=== PATIENT | female | born 1945 | race Caucasian/White ===

== ENCOUNTER 2016-10-24 10:16 | Inpatient (IN) ==
[2016-10-24] MEDS ORDERED: Levofloxacin 750 MG/150 ML 750 MG/150 ML BAG IVPB ONE (10:46)
[2016-10-24] MEDS ORDERED: Ipratropium/Albuterol Neb 3 ML IH ONE (10:51)
[2016-10-24] MEDS ORDERED: Azithromycin 500 MG in D5% in Water 250 ML IVPB ONE (10:53)
[2016-10-24] MEDS ORDERED: 0.9 % Sodium Chloride 1,000 ML IVC ONE ×3 (10:56→14:23)
[2016-10-24 11:19] LABS: Hematocrit 33.6 % (35.3-44.9); Hemoglobin 11.1 g/dL (11.5-15.4); Mean Corpuscular Hemoglobin 31.2 pg (28.0-33.3); Mean Corpuscular Volume 94.4 fL (83.0-100.0); Mean Platelet Volume 9.9 fL (9.4-12.4); Platelet Count 226 K/mcL (140-400); Red Blood Count 3.56 M/mcL (3.82-4.97); Red Cell Distribution Width 13.8 % (11.5-14.5)
--- NOTE | 2016-10-24 11:23 | Emergency Department Note ---
START Narrative - START START: I personally interviewed and examined this patient and my medical decision- making was reviewed with the ED Resident Physicians, Drs. Arana/Bhupendra. I agree with the documented findings, disposition and treatment plan as described except to the extent set forth below. She is a pleasant 71-year-old white female brought in by her this morning for complaints generalized body aches fever chills cough that began last night. Patient arrives hypoxic and hypotensive with complaints of some lightheadedness with standing. Despite hypoxia patient is in no visible signs of respiratory distress on arrival, no tachypnea conversational dyspnea and no increased work of breathing. Patient denies any chest pain pressure or heaviness no abdominal pain, no flank pain. Patient's states that she has had endoscopic surgery for sinuses in the past by ENT due to chronic recurrent sinusitis, and since that time is seems very susceptible to upper respiratory infection and pneumonia. Patient had a bilateral pneumonia in the past due to pneumococcal pneumonia. Patient had no ill contacts at home. Patient on arrival has no signs of respiratory distress, lungs no audible wheezing on auscultation. Patient appears tired mildly pale in color but remainder of physical exam is unremarkable. Patient was placed on a monitor I large bore IV saline well was established IV fluids were initiated for the hypotension and placed on supplement oxygen. Patient had blood cultures obtained, and with clinical suspicion for possible sepsis due to hypotension patient had a fluid bolus ordered a septic protocol labs were ordered and patient was started on empiric antibiotics for possible pneumonia. Chest x-ray does show bilateral pneumonia. Reviewed results with patient and plan for admission pending remainder of labs. We will observe her blood pressure closely as well as her respiratory status and repeat lactate after fluid boluses. Critical care time was approximately 30 minutes separate from any billable procedures. Patient acquired critical care evaluation and assessment due to the respiratory as well as cardiovascular systems. The high probability of a clinically significant, sudden or life threatening deterioration of the [resp/CV] system(s) required my full and direct attention, intervention and personal management. The aggregate critical care time was [30] minutes. This time is in addition to time spent performing reported procedures but includes the following: [X] Data Review and interpretation [X] Patient assessment and monitoring of vital signs [X] Documentation [X] Medication orders and management
[2016-10-24 11:36] LABS: Albumin 3.1 g/dL (3.5-5.0); Albumin/Globulin Ratio 0.8 (1.1-2.2); Bilirubin,Direct 0.5 mg/dL (0.0-0.5); Bilirubin,Indirect 0.6 mg/dL (0.0-1.2); Bilirubin,Total 1.1 mg/dL (0.2-1.2); Globulin 3.7 g/dL (2.4-3.5); Magnesium 1.3 mg/dL (1.6-2.6); Phosphorous 2.6 mg/dL (2.3-4.7); Potassium 3.8 mEq/L (3.5-4.5); Total Protein 6.8 g/dL (6.0-8.3)
[2016-10-24 12:24] LABS: Lymphocytes # 0.5 K/mcL (0.6-4.6); Monocytes # 0.3 K/mcL (0.0-1.3); Platelet Estimate Normal (Normal)
--- NOTE | 2016-10-24 12:49 | Emergency Department Note ---
Disposition Clinical Impression: Community acquired pneumonia, SOB (shortness of breath), ROWAN (acute kidney injury), Lactic acid acidosis Bilateral pneumonia Qualifiers: Pneumonia type: due to unspecified organism Lung location: lower lobe of lung Qualified Code(s): J18.9 - Pneumonia, unspecified organism Sepsis Qualifiers: Sepsis type: sepsis due to unspecified organism Qualified Code(s): A41.9 - Sepsis, unspecified organism Disposition: Transfer Short-Term Hosp Condition: Serious Time of Disposition: 16:25 General Adult HPI - General Chief complaint: ED Shortness of Breath/Dyspnea Stated complaint: multiple complaints Time Seen by Provider: 10/24/16 10:25 Source: patient, family Limitations: no limitations Nursing Notes Reviewed: Yes Vital Signs Reviewed: Yes - History of Present Illness HPI Narrative: Patient is a 71-year-old female who presents to tachypneic, tachycardic, and hypotensive with past medical history for asthma and hyperlipidemia. Patient states that she has acute onset of fever of 101, congestion and cough times one day. Patient states she took Tylenol. Patient admits to shortness of breath and well. Patient states she has history of pneumonia in the past. The patient states that she has never been intubated. Patient reports feeling 2 days ago. Pain Scale: 0 - Related Data Home Medications Medication Instructions Recorded Confirmed Acetaminophen [Tylenol] 1,000 mg PO Q6HR PRN 10/24/16 10/24/16 Albuterol Sulfate [Albuterol 2 puff IH Q6HR PRN 10/24/16 10/24/16 Inhaler] Atorvastatin Calcium [Lipitor] 20 mg PO HS 10/24/16 10/24/16 Fluticasone/Salmeterol [Advair 1 puff IH BID 10/24/16 10/24/16 250-50 Diskus] Naproxen Sodium [Aleve] 220 mg PO Q12H PRN 10/24/16 10/24/16 Pantoprazole Sodium [Protonix] 40 mg PO HS 10/24/16 10/24/16 Paroxetine [Paxil] 30 mg PO DAILY 10/24/16 10/24/16 Trazodone HCl 150 mg PO HS 10/24/16 10/24/16 Allergies Allergy/AdvReac Type Severity Reaction Status Date / Time No Known Allergies Allergy Verified 05/01/15 19:31 All systems ED: reviewed and negative except as stated. Constitutional: Reports: fever, weakness. Denies: chills Eyes: Denies: vision change ENT ED: Reports: congestion Cardiovascular: Denies: chest pain, palpitations, syncope Respiratory: Reports: cough, dyspnea. Denies: wheezes, hemoptysis, sputum production Gastrointestinal: Denies: abdominal pain, nausea, vomiting, diarrhea, hematemesis, melena, hematochezia Genitourinary: Denies: urgency, dysuria, frequency Musculoskeletal: Reports: back pain. Denies: neck pain, myalgia Neurological: Reports: headache, weakness Psychiatric: Reports: anxiety Endocrine: Reports: fatigue Past Medical History - Past Medical History Attestation: Yes The following information was validated with the patient. Source: patient Medical history: Reports: arthritis, asthma, hyperlipidemia Psychiatric history: Reports: depression - Social History Smoking Status: Never smoker Smokeless Tobacco Status: No Alcohol use: Reports: none Drug use: Reports: none Physical Exam Vital Signs Temperature 97.8 F 10/24/16 10:19 Pulse Rate 95 10/24/16 10:19 Respiratory Rate 16 10/24/16 10:19 Blood Pressure 81/56 10/24/16 10:19 O2 Sat by Pulse Oximetry 88 10/24/16 10:19 Temperature 97.8 F 10/24/16 10:19 Pulse Rate 115 10/24/16 15:45 Respiratory Rate 18 10/24/16 15:45 Blood Pressure 102/67 10/24/16 15:45 O2 Sat by Pulse Oximetry 94 10/24/16 15:45 Oxygen Delivery Oxygen Delivery Nasal Cannula -General Appearance: Patient is a 71-year-old female who is alert and oriented 3 but is tachypneic, and appears fatigued. Patient has a GCS of 15. Patient was placed on O2 reason is nasal cannula. O2 sat initially was 88%. After placement on O2 via is a nasal cannula O2 sat came up to 92%. Patient is bruising easier but still tachypneic -Neurological exam: Cranial nerves II-12 intact, no focal deficits observed, strength equal 5/5 bilaterally in upper and lower extremities - Head Head exam: atraumatic, normocephalic, normal inspection - Eye Eye exam: Present: normal appearance, PERRL, EOMI, negative for scleral icterus negative for conjunctival pallor - ENT ENT exam: normal exam, normal oropharynx, mucous membranes dry - Neck Neck exam: Present: normal inspection, full ROM, trachea midline, negative JVD - Chest Chest inspection: Present: Patient has bilateral equal rise and fall of chest wall. Non-tender to palpation. - Respiratory Respiratory exam: Rales in lung bases bilaterally heard on auscultation. Patient has a wet sounding nonproductive cough Cardiovascular Cardiovascular exam: Present: Irregular rate and regular rhythm with no murmurs rubs or gallops. 9 his tach on EKG - Abdominal Exam Abdominal exam: Present: soft, nondistended, Non-Tender light and deep palpation in all quadrants. Bowel sounds normoactive throughout all 4 quadrants. Negative for hyper or hyperresonance. - Extremities Exam Extremities exam: Present: normal inspection, full ROM - Back Exam Back exam: Present: normal inspection, full ROM. Patient has left-sided CVA tenderness. - Psychiatric Psychiatric exam: Present: normal affect, normal mood - Skin Skin exam: Present: warm, dry, intact, normal color - General Limitations: no limitations General appearance: alert, in no apparent distress Course - Reevaluation(s) Reevaluation #1: Patient presents with tachypnea, tachycardia, shortness of breath, Rales bilateral lung knowles and fever over 101 at home. Patient's concerning for sepsis secondary to possible pneumonia. Also consider PE, ACS/TX, heart failure , but given patient's history of fever will consider infectious condition first. Full sepsis workup ordered. CBC, BMP, lactate, cultures, LFTs, lipase ordered. Chest x-ray ordered. EKG and troponins ordered. Time: 10:46 Reevaluation #2: Pt continues to feel short of breath. Still hypotensive at 80/55. Patient fdc through first liter bolus. Starting another line. Labs show an elevation of lactate of 4.0., IV antibiotics, IV normal saline already initiated. Cultures were drawn first. Secondary Lactaid already ordered. DuoNeb was ordered. Chest x-ray shows bilateral lower lobe pneumonias. Patient started on Levaquin for community acquired pneumonia Time: 11:20 Reevaluation #3: Blood pressure 133/85 after 1.5 L fluid bolus. Patient currently doing well but complains of still feeling short of breath. Patient is tachypneic but not the point requiring BiPAP. Patient appears more anxious than anything else. Patient was accepted for admission by Dr. Pena the hospitalist Time: 12:47 Additional Reevaluation(s): 1425hrs: Patient was admitted to the hospital. I had requested the patient go to 2N given herself current condition. Patient was instead sent to 2A, then sent back to the ED because she is not appropriate for that floor. Concurrently had just placed a call to Dr. Pena about the patient's rising lactic acid. 4 which, he recommends admission to the ICU. Unfortunately there are currently no beds in the ICU. Patient has been placed on an ED hold. Patient has been started on another liter of normal saline to make 3 L thus far. We will continue to monitor patient's lactic acid, lung status concerning continuing IV hydration, and continue to investigate patient's shortness of breath, tachypnea, and rising lactic acid even though patient is being aggressively hydrated. Patient has been started on vancomycin in addition to her Levaquin which she started earlier. CT chest ordered to rule out any other underlying causes for patient's symptoms. Chest CT 10/24/16 14:34 IMPRESSION: 1. Findings consistent with bilateral basilar predominant multifocal pneumonia. No effusion. 2. Subcarinal lymphadenopathy which may be reactive in nature. Patient continues to revert back into hypotension after fluid challenge after fluid challenge. Patient's blood pressure will go up and then go back down. Patient has accepted the decision for central line placement of the right IJ to prepare for possible vasopressor treatment if necessary to maintain the patient' s blood pressure. See procedure note. Patient received a total of 4 L of IV normal saline. The decision to withhold BiPAP was made after patient received 0.5 mg of Ativan which allowed her to calm down. Patient's breathing rate slowed down and patient was able to breathe easier. BiPAP was kept at bedside in case patient required it. Patient's and patient requests patient be transferred to [facility]. We will facilitate patient's request secondary to us not having unavailable ICU bed. It is unknown at this time and how long it would take first to open up an ICU bed and given patient's current status she appears to be more sick than the requirements of our emergency department can provide at this time. 1625 hrs.: Transfer has been initiated patient is in route to [facility]. - Consultations Consultation #1: Dr. Townsend ED physician at [facility] has accepted patient for transfer. Time: 15:50 Vital Signs Temperature 97.8 F 10/24/16 10:19 Pulse Rate 95 10/24/16 10:19 Respiratory Rate 16 10/24/16 10:19 Blood Pressure 81/56 10/24/16 10:19 O2 Sat by Pulse Oximetry 88 10/24/16 10:19 Temperature 97.8 F 10/24/16 10:19 Pulse Rate 113 10/24/16 16:00 Respiratory Rate 16 10/24/16 16:25 Blood Pressure 136/68 10/24/16 16:25 O2 Sat by Pulse Oximetry 94 10/24/16 16:00 Oxygen Delivery Oxygen Delivery Nasal Cannula Procedures - Central Line Placement Right IJ Central Line Inserted*: Yes Central Line Catheter Replacement*: Yes Central Line Insertion: emergent Consent Obtained: verbal consent, written consent Procedural Pause: verify patient name and date of , timeout performed per policy, chuck and assess the site, assemble equipment and verify supplies, perform hand hygiene Patient Placed on Monitor/Pulse Ox: Yes During the Procedure: clinician is wearing sterile gloves, cap, mask,& gown during insertion, sterile field and sterile technique are maintained, patient's face is covered with drape or mask and wearing a cap, everyone in room is wearing a mask Central Line Prep: Chlorhexidine scrub Prep the Procedure Site: apply chloraprep to the skin using a back and forth scrubbing motion, apply chloraprep for 30 seconds (upper body), 1-2 min ( femoral sites), allow prep to dry, drape the patient with a full body drape Local Anesthetic: lidocaine 1% Amount of anesthesia used (mL): 3 Ultrasound Used for Placement: Yes Central Line Lumen Inserted: triple Post Procedure: sutured in place, good blood return, all ports aspirated, flushed, capped, sterile dressing applied, guide wire removed and visualized, dressing is dated Post Procedure X-Ray: tip of catheter in good position Patient Tolerated Procedure: well, no complications Name of Clinician Inserting Central Line: Dr. Arana Clinician Assisting/Completing Checklist: Dr. Whitehead Date: 10/24/16 Time: 15:45 Medical Decision Making - Lab Data Lab results reviewed: Yes I reviewed the patient's lab results. Lab results narrative: Short CBC 10/24/16 Range/Units 11:05 WBC 7.8 (4.3-11.1) K/mcL Hgb 11.1 L (11.5-15.4) g/dL Hct 33.6 L (35.3-44.9) % Plt Count 226 (140-400) K/mcL Neutrophils # 7.0 (1.6-8.9) K/mcL BMP 10/24/16 10/24/16 Range/Units 15:50 11:05 Sodium 136 138 (136-145) mEq/L Potassium 3.6 3.8 (3.5-4.5) mEq/L Chloride 112 H 106 (98-109) mEq/L Carbon Dioxide 14 L 19 (19-29) mEq/L BUN 21 H 23 H (7-20) mg/dL Creatinine 0.98 1.47 H (0.57-1.11) mg/dL Glucose 174 H 133 H (70-99) mg/dL Calcium 7.1 L D 9.0 (8.6-10.8) mg/dL Cardiac Enzymes 10/24/16 Range/Units 11:05 Troponin I 0.00 (0-0.03) ng/mL Liver Function 10/24/16 Range/Units 11:05 Total Bilirubin 1.1 (0.2-1.2) mg/dL Direct Bilirubin 0.5 (0.0-0.5) mg/dL AST 16 (5-34) Units/L ALT 15 (0-55) Units/L Alkaline Phosphatase 61 (38-126) Units/L Albumin 3.1 L (3.5-5.0) g/dL Result diagrams: 10/24/16 11:05 10/24/16 15:50 Lab Results 10/24/16 10/24/16 10/24/16 Range/Units 11:05 11:05 11:05 WBC 7.8 (4.3-11.1) K/mcL RBC 3.56 L (3.82-4.97) M/mcL Hgb 11.1 L (11.5-15.4) g/dL Hct 33.6 L (35.3-44.9) % MCV 94.4 (83.0-100.0) fL MCH 31.2 (28.0-33.3) pg MCHC 33.0 (31.6-35.5) g/dL RDW 13.8 (11.5-14.5) % Plt Count 226 (140-400) K/mcL MPV 9.9 (9.4-12.4) fL Seg Neutrophils % 46.0 % Band Neutrophils % 44.0 H (0-4) % Lymphocytes % 6.0 % Monocytes % 4.0 % Neutrophils # 7.0 (1.6-8.9) K/mcL Lymphocytes # 0.5 L (0.6-4.6) K/mcL Monocytes # 0.3 (0.0-1.3) K/mcL Platelet Estimate Normal (Normal) Sodium 138 (136-145) mEq/L Potassium 3.8 (3.5-4.5) mEq/L Chloride 106 (98-109) mEq/L Carbon Dioxide 19 (19-29) mEq/L BUN 23 H (7-20) mg/dL Creatinine 1.47 H (0.57-1.11) mg/dL Est GFR ( Amer) 42 L (> 60) Est GFR (Non-Af Amer) 35 L (> 60) BUN/Creatinine Ratio 16 (6-26) Glucose 133 H (70-99) mg/dL Calculated Osmolality 292 (280-300) Lactic Acid (0.5-2.2) mmol/L Calcium 9.0 (8.6-10.8) mg/dL Phosphorus 2.6 (2.3-4.7) mg/dL Magnesium 1.3 L (1.6-2.6) mg/dL Total Bilirubin 1.1 (0.2-1.2) mg/dL Direct Bilirubin 0.5 (0.0-0.5) mg/dL Indirect Bilirubin 0.6 (0.0-1.2) mg/dL AST 16 (5-34) Units/L ALT 15 (0-55) Units/L Alkaline Phosphatase 61 (38-126) Units/L Troponin I (0-0.03) ng/mL B-Natriuretic Peptide 288 H (0-100) pg/mL Serum Total Protein 6.8 (6.0-8.3) g/dL Albumin 3.1 L (3.5-5.0) g/dL Globulin 3.7 H (2.4-3.5) g/dL Albumin/Globulin Ratio 0.8 L (1.1-2.2) Lipase 23 (8-78) Units/L 10/24/16 10/24/16 Range/Units 11:05 11:08 WBC (4.3-11.1) K/mcL RBC (3.82-4.97) M/mcL Hgb (11.5-15.4) g/dL Hct (35.3-44.9) % MCV (83.0-100.0) fL MCH (28.0-33.3) pg MCHC (31.6-35.5) g/dL RDW (11.5-14.5) % Plt Count (140-400) K/mcL MPV (9.4-12.4) fL Seg Neutrophils % % Band Neutrophils % (0-4) % Lymphocytes % % Monocytes % % Neutrophils # (1.6-8.9) K/mcL Lymphocytes # (0.6-4.6) K/mcL Monocytes # (0.0-1.3) K/mcL Platelet Estimate (Normal) Sodium (136-145) mEq/L Potassium (3.5-4.5) mEq/L Chloride (98-109) mEq/L Carbon Dioxide (19-29) mEq/L BUN (7-20) mg/dL Creatinine (0.57-1.11) mg/dL Est GFR ( Amer) (> 60) Est GFR (Non-Af Amer) (> 60) BUN/Creatinine Ratio (6-26) Glucose (70-99) mg/dL Calculated Osmolality (280-300) Lactic Acid 4.0 H* (0.5-2.2) mmol/L Calcium (8.6-10.8) mg/dL Phosphorus (2.3-4.7) mg/dL Magnesium (1.6-2.6) mg/dL Total Bilirubin (0.2-1.2) mg/dL Direct Bilirubin (0.0-0.5) mg/dL Indirect Bilirubin (0.0-1.2) mg/dL AST (5-34) Units/L ALT (0-55) Units/L Alkaline Phosphatase (38-126) Units/L Troponin I 0.00 (0-0.03) ng/mL B-Natriuretic Peptide (0-100) pg/mL Serum Total Protein (6.0-8.3) g/dL Albumin (3.5-5.0) g/dL Globulin (2.4-3.5) g/dL Albumin/Globulin Ratio (1.1-2.2) Lipase (8-78) Units/L - Radiology Data Radiology results reviewed: Yes I reviewed the patient's radiology results. Chest CT 10/24/16 14:34 IMPRESSION: 1. Findings consistent with bilateral basilar predominant multifocal pneumonia. No effusion. 2. Subcarinal lymphadenopathy which may be reactive in nature. D/ / 10/24/2016 15:17:31 Gerald Gorman MD / artur Interpreting Provider: Gerald Gorman MD Chest X-Ray 10/24/16 15:35 IMPRESSION: 1. New right IJ central venous catheter positioned in the SVC. No pneumothorax 2. Stable multifocal bilateral airspace opacities may indicate a multilobar pneumonia. D/ /24/2016 15:51:59 Adam Post MD / Alba Flanagan Interpreting Provider: Adam Post MD - EKG Data EKG #1 EKG attestation: Yes I reviewed and interpreted this EKG. EKG results narrative: EKG taken 10/24/2016 at 1027 hrs. shows a sinus rhythm with no acute ST elevations in any leads or ST depressions. No QRS widening or QT prolongation. Previous EKG taken 11/04/2013 shows sinus tachycardia at a rate of 110 bpm with no signs of ischemia
--- NOTE | 2016-10-24 13:27 | Internal Med History&Physical ---
Date of Encounter: 10/24/16 Time of Encounter: 13:00 Assessment and Plan (1) Severe sepsis due to Streptococcus pneumoniae with acute organ dysfunction Current visit: Yes Status: Suspected Patient presenting with severe sepsis due to pneumonia which is community- acquired, possibly due to strep pneumonia. Will admit inpatient. IV antibiotics. IV fluids. Follow blood and sputum cultures. High risk for complications. (2) Community acquired pneumonia Current visit: Yes Status: Acute Bilateral comminuted, pneumonia most likely due to strep pneumonia. IV antibiotics. O2 supplementation. Follow blood and sputum cultures. Monitor vital signs closely. We will also get viral respiratory infection panel. (3) ROWAN (acute kidney injury) Current visit: Yes Status: Acute Due to severe sepsis. We will hydrate intravenously. Follow renal function closely. Internal Medicine - H&P: HPI Chief complaint: Fever, feeling sick Admitted From: Emergency Dept Plans for Post Hospital Care: Home History of present illness: Ms. Melchor is a 71 year old female patient with a history of ulcerative colitis status post colectomy and ileostomy presented to the ER with complaints of sudden onset fever, chills and generalized weakness with dizziness as especially on standing up that began last night. She had been feeling fine prior to that. She was also having some shortness of breath and wheezing. She had some cough without any sputum production. No chest pain. No recent hospitalizations. No nausea or vomiting. No diarrhea. No dysuria. Past Med Surg Social Fam HX - Past Medical History Attestation: Yes The following information was validated with the patient. Source: patient Medical history: arthritis, asthma, hyperlipidemia, other (Ulcerative colitis) Psychiatric history: depression - Past Surgical History Surgical History: other (Colectomy and ileostomy for ulcerative colitis) - Social History Smoking Status: Never smoker Smokeless Tobacco Status: No Alcohol use: none Drug use: none - Additional Family History Additional family history: Reviewed and found to be noncontributory at this time Internal Medicine - H&P: Meds Acetaminophen [Tylenol] 1,000 mg PO Q6HR PRN 10/24/16 [History] Albuterol Sulfate [Albuterol Inhaler] 2 puff IH Q6HR PRN 10/24/16 [History] Atorvastatin Calcium [Lipitor] 20 mg PO HS 10/24/16 [History] Fluticasone/Salmeterol [Advair 250-50 Diskus] 1 puff IH BID 10/24/16 [History] Naproxen Sodium [Aleve] 220 mg PO Q12H PRN 10/24/16 [History] Pantoprazole Sodium [Protonix] 40 mg PO HS 10/24/16 [History] Paroxetine [Paxil] 30 mg PO DAILY 10/24/16 [History] Trazodone HCl 150 mg PO HS 10/24/16 [History] Allergies No Known Allergies Allergy (Verified 05/01/15 19:31) All Systems PM: A 10-system review of systems was performed and is negative for pertinent findings except as documented above in the HPI. - Constitutional Constitutional: no chills, no fever(s), no night sweats - EENT Eyes: no change in vision, no discharge, no pain, no photophobia Ears: no ear discharge, no ear pain, no tinnitus Nose, mouth and throat: no dysphagia, no nasal discharge, no neck pain, no sore throat - Cardiovascular Cardiovascular ROS IM: no chest pain, no diaphoresis, no dyspnea, no lightheadedness, no palpitations, no syncope - Respiratory Respiratory: cough, dyspnea, no wheezing, no excessive phlegm production - Gastrointestinal Gastrointestinal: no abdominal pain, no diarrhea, no hematemesis, no hematochezia, no melena, no nausea, no vomiting - Genitourinary Genitourinary: no change in urinary stream, no dysuria, no flank pain, no hematuria - Musculoskeletal Musculoskeletal ROS IM: no numbness, no tingling - Integumentary Integumentary IM: no rash, no unusual bruising - Psychiatric Psychiatric: anxiety - Hematologic/Lymphatic Hematologic/Lymphatic: no easy bruising - Constitutional Vitals: Temp Pulse Resp BP Pulse Ox 97.8 F 108 16 91/67 94 10/24/16 10:19 10/24/16 12:15 10/24/16 12:15 10/24/16 12:15 10/24/16 12:15 General appearance: Present: cooperative, A&O X 3, answers questions appropriately - Neck Neck exam general surgery: Present: supple, trachea midline. Absent: lymphadenopathy - Respiratory Respiratory exam: Present: rhonchi. Absent: accessory muscle use, rales, wheezes - Cardiovascular Cardiovascular exam: Present: RRR, +S1, +S2, tachycardia. Absent: diastolic murmur, gallop, rubs, systolic murmur - GI/Abdominal GI/Abdominal exam: Present: normal bowel sounds, soft, no peritoneal signs. Absent: distended, tenderness - Extremities Exam Extremities exam: Present: warm, radial pulses palpable and symetrical. Absent : calf tenderness, cyanotic, pedal edema - Neurological Exam Neurological exam: Present: CN II-XII intact, oriented X3, no focal deficits. Absent: facial droop, speech deficit - Skin Skin exam: Present: dry, intact Internal Med - H&P Results - Labs CBC & Chem 7: 10/24/16 11:05 10/24/16 11:05 - Impressions Impressions Chest X-Ray 10/24/16 10:50 IMPRESSION: Possible left parahilar and right lower lobe infiltrates suggesting pneumonia. Follow-up is recommended after treatment to ensure resolution D/ / Shahram Callahan MD / Shahram Callahan MD Interpreting Provider: Shahram Callahan MD - Attending Attestation This document has been at least partially created by [employer] recognition technology by Dr. Pena. Errors in grammar, wording or other phrases may exist. If errors are found after the documentation is signed, they will be addressed individually in the addendum section of this document when appropriate.
[2016-10-24] MEDS ORDERED: Naloxone 0.4 MG/ML INJ IVP PRN (13:37)
[2016-10-24] MEDS ORDERED: Acetaminophen 325 MG TABLET PO PRN (13:37)
[2016-10-24] MEDS ORDERED: *HR* LORazepam 2 MG/ML VIAL IVP ONE (13:40)
[2016-10-24] MEDS ORDERED: 0.9 % Sodium Chloride 1,000 ML IVC SCH (13:45)
[2016-10-24] MEDS ORDERED: Vancomycin 750 MG in D5% in Water 250 ML IVPB ONE (14:30)
[2016-10-24] MEDS ORDERED: Magnesium Sulfate 2 GM in D5% in Water 100 ML IVPB ONE (15:19)
[2016-10-24] MEDS ORDERED: Plasma-Lyte A (PH 7.4) 1,000 ML IVC SCH (15:45)
[2016-10-24 15:57] LABS: VBG HCO3 13.6 mEq/L (21-27); VBG PH 7.25 pH Units (7.32-7.42)
[2016-10-24 16:15] LABS: BUN/Creatinine Ratio 21 (6-26); Blood Urea Nitrogen 21 mg/dL (7-20); Carbon Dioxide 14 mEq/L (19-29); Chloride 112 mEq/L (98-109); Glucose 174 mg/dL (70-99); Osmolality,Calculated 289 (280-300); Potassium 3.6 mEq/L (3.5-4.5); Sodium 136 mEq/L (136-145); eGFR For African Americans > 60 (> 60); eGFR For Non-African Americans 56 (> 60)
[2016-10-24 16:16] LABS: Calcium 7.1 mg/dL (8.6-10.8)
[2016-10-24] MEDS ORDERED: traZODone 50 MG TABLET PO SCH (21:00)
[2016-10-24] MEDS ORDERED: Budesonide/Formoterol 80/4.5 MDI IH SCH (21:00)
[2016-10-25] MEDS ORDERED: Azithromycin 500 MG in D5% in Water 250 ML IVPB SCH (09:00)
[2016-10-26] MEDS ORDERED: Levofloxacin 750 MG/150 ML 750 MG/150 ML BAG IVPB SCH (11:00)
--- NOTE | 2016-10-26 17:35 | Electrocardiograph Report ---
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
== END 2016-10-24 17:12 | disposition other institution (70) | DRG 871 ==
LOC: 2ANU 10:16 → EMEROO 10:16 → OBSVTOIN 12:53 → 2NNU 14:12 → ICNU 14:34 → 2NNU 15:26
PROVIDERS: ADMIT Internal Medicine; ATTEND Internal Medicine

== ENCOUNTER 2018-04-22 22:17 | Inpatient (IN) ==
[2018-04-22] MEDS ORDERED: 0.9 % Sodium Chloride 1,000 ML IVC ONE ×2 (22:34→23:52)
--- NOTE | 2018-04-22 22:34 | Emergency Department Note ---
Disposition Clinical Impression: Atrial fibrillation with RVR, Acute kidney injury Community acquired pneumonia Qualifiers: Laterality: right Lung location: lower lobe of lung Qualified Code(s): J18.1 - Lobar pneumonia, unspecified organism Disposition: Admitted As Inpatient Condition: Critical Time of Disposition: 05:49 Arrhythmia/Palpitations HPI - General Stated Complaint: A FIB Time Seen by Provider: 04/22/18 22:21 Nursing Notes Reviewed: Yes Vital Signs Reviewed: Yes - History of Present Illness HPI Narrative: 73 old female presents from home for evaluation of generalized weakness and fatigue. This began yesterday. She and her recently traveled from [place]. At urgent care today, she was diagnosed with URI and prescribed azithromycin. She is taking the first dose of 500 mg. She otherwise has no complains. PMH: Remote history of paroxysmal atrial fibrillation secondary to pneumonia and managed with metoprolol. She is currently on no rate limiting medications. No history of CAD, ACS, COPD, CHF, DM, or thyroid problems. Anticoagulant: None Antiplatelet: Aspirin ROS: Positive: As above Negative: Fever, chills, nausea, vomiting, chest pains, palpitations, dyspnea, diaphoresis - Related Data Home Medications Medication Instructions Recorded Confirmed Acetaminophen [Tylenol] 1,000 mg PO Q6HR PRN 10/24/16 10/24/16 Albuterol Sulfate [Albuterol 2 puff IH Q6HR PRN 10/24/16 10/24/16 Inhaler] Atorvastatin Calcium [Lipitor] 20 mg PO HS 10/24/16 10/24/16 Fluticasone/Salmeterol [Advair 1 puff IH BID 10/24/16 10/24/16 250-50 Diskus] Naproxen Sodium [Aleve] 220 mg PO Q12H PRN 10/24/16 10/24/16 Pantoprazole Sodium [Protonix] 40 mg PO HS 10/24/16 10/24/16 Paroxetine [Paxil] 30 mg PO DAILY 10/24/16 10/24/16 Trazodone HCl 150 mg PO HS 10/24/16 10/24/16 Previous Rx's Medication Instructions Recorded Oseltamivir [Tamiflu] 75 mg PO BID #10 capsule 07/10/17 Allergies Allergy/AdvReac Type Severity Reaction Status Date / Time No Known Allergies Allergy Verified 05/01/15 19:31 All systems ED: reviewed and negative except as stated. 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 Head: atraumatic, normocephalic Eye: normal appearance, PERRL, EOMI, no scleral icterus, no conjunctival injection ENT: mucous membranes moist, normal external ear exam Neck: normal inspection, trachea midline, full ROM Chest: normal inspection, symmetric chest rise Respiratory: Good respiratory effort. Bilateral breath sounds are clear without wheezing, crackles, or rhonchi. Cardiovascular: Tachycardic rate and regular rhythm. No clicks, rubs, gallops, or murmors. Normal heart sounds. Abdomen: Bowel sounds present normoactive x-4 quadrants. Abdomen is soft, nondistended, and nontender. No guarding or rebound. No organomegaly noted. Musculoskeletal: Spontaneously moving all extremities. Skin: warm, dry, intact. Neuro: Alert and oriented x4. Sensation light touch intact. Psych: Patient's affect is appropriate for situation. 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 Patient is in A. fib RVR. Blood pressure is 93 systolic. Will begin with a Cardizem drip. Will avoid bolus secondary to blood pressure. Will also obtain to peripheral IVs and begin 1 L IV fluid bolus. Throughout the patient's course, she was hypotensive. Lowest systolic blood pressure was high 70s. She received upwards of 3 L normal saline throughout her emergency department stay. Patient and her note that she has hardly had anything to eat or drink for the last 2 days. She likely started volume depleted worsening her blood pressure in the fibrillation state. At one point, her systolic blood pressure was 78. This was when she remained A. fib RVR. Discussed converting with digoxin versus electrical cardioversion. At this time, patient's blood pressure responded to fluids and she was approximately 115 systolic BP. The decision was made to move forward with low-dose Cardizem drip without bolus. Her systolic BP hovered in the mid 90's when in A. Fib RVR on low dose cardizem drip as well as after NSR conversion. Patient did cardiovert from A. fib RVR to normal sinus rhythm with rate of 90. Chest x-ray is concerning for right middle lobe pneumonia. Clinical concern that all infection is causing patient's A. fib RVR; this is consistent with her previous episode of A. fib RVR being secondary to pulmonary infection. begin the patient on empiric ceftriaxone and azithromycin for community-acquired pneumonia. I discussed the patient with on-call cardiology. He agrees to accept the patient as consult with admission to medicine. I discussed the patient with the admitting hospitalist. He requested a d-dimer which I ordered. No additional questions or concerns this time. EKG #1 EKG dated 04/22/2018 at 22:24 interpreted as atrial fibrillation with rapid ventricular rate; rate of 162. QRS 86. QTC 462. Normal axis. Isolated T-wave inversion to be one area compared to previous EKG dated 10/16/2016 showing sinus rhythm also with T-wave inversion in V1. No acute ischemic changes or com parison. EKG #2 EKG dated 04/23/2018 at 02:05 interpreted as sinus rhythm with rate of 91. MS 203, QRS 86, QTC 445. T-wave inversions in lead V1 present on comparative EKG. Compared to previous EKG dated 10/16/2016 showing no acute ischemic changes comparison. Vital Signs Temperature 98.3 F 04/22/18 22:22 Pulse Rate 161 04/22/18 22:22 Respiratory Rate 19 04/22/18 22:22 Blood Pressure 93/70 04/22/18 22:22 O2 Sat by Pulse Oximetry 95 04/22/18 22:22 Temperature 97.7 F 04/23/18 04:00 Pulse Rate 84 04/23/18 04:00 Respiratory Rate 12 04/23/18 04:00 Blood Pressure 98/53 04/23/18 04:00 O2 Sat by Pulse Oximetry 96 04/23/18 04:00 Oxygen Delivery Oxygen Delivery Nasal Cannula Arrhythmia/Palpitations - Lab Data Result diagrams: 04/23/18 04:50 04/23/18 04:50 Lab Results 04/22/18 04/22/18 04/22/18 Range/Units 22:34 22:34 22:34 WBC 24.0 H (4.3-11.1) K/mcL RBC 4.04 (3.82-4.97) M/mcL Hgb 12.2 (11.5-15.4) g/dL Hct 37.9 (35.3-44.9) % MCV 93.8 (83.0-100.0) fL MCH 30.2 (28.0-33.3) pg MCHC 32.2 (31.6-35.5) g/dL RDW 13.7 (11.5-14.5) % Plt Count 218 (140-400) K/mcL MPV 10.2 (9.4-12.4) fL Immature Gran % 5.0 H (0-4) % Seg Neutrophils % 87.5 % Lymphocytes % 2.4 % Monocytes % 4.7 % Eosinophils % 0.2 % Basophils % 0.2 % Neutrophils # 21.0 H (1.6-8.9) K/mcL Lymphocytes # 0.6 (0.6-4.6) K/mcL Monocytes # 1.1 (0.0-1.3) K/mcL Eosinophils # 0.1 (0.0-0.6) K/mcL Basophils # 0.1 (0.0-0.2) K/mcL Platelet Estimate Normal (Normal) PT 15.6 H (9.4-12.1) Seconds INR 1.4 APTT 30.0 (26.0-36.0) Seconds Sodium 133 L (136-145) mEq/L Potassium 3.3 L (3.5-5.1) mEq/L Chloride 102 (98-107) mEq/L Carbon Dioxide 18 L (23-29) mEq/L BUN 27 H (8-23) mg/dL Creatinine 1.63 H (0.60-1.20) mg/dL Est GFR ( Amer) 37 L (> 60) Est GFR (Non-Af Amer) 31 L (> 60) BUN/Creatinine Ratio 17 (6-26) Glucose 164 H (70-105) mg/dL Calculated Osmolality 285 (280-300) Lactic Acid (0.5-2.2) mmol/L Calcium 10.3 (8.6-10.3) mg/dL Magnesium 1.4 L (1.6-2.6) mg/dL Troponin I 0.06 H* (< 0.04) ng/mL TSH 0.415 (0.340-5.600) mcIU/mL 04/23/18 Range/Units 01:47 WBC (4.3-11.1) K/mcL RBC (3.82-4.97) M/mcL Hgb (11.5-15.4) g/dL Hct (35.3-44.9) % MCV (83.0-100.0) fL MCH (28.0-33.3) pg MCHC (31.6-35.5) g/dL RDW (11.5-14.5) % Plt Count (140-400) K/mcL MPV (9.4-12.4) fL Immature Gran % (0-4) % Seg Neutrophils % % Lymphocytes % % Monocytes % % Eosinophils % % Basophils % % Neutrophils # (1.6-8.9) K/mcL Lymphocytes # (0.6-4.6) K/mcL Monocytes # (0.0-1.3) K/mcL Eosinophils # (0.0-0.6) K/mcL Basophils # (0.0-0.2) K/mcL Platelet Estimate (Normal) PT (9.4-12.1) Seconds INR APTT (26.0-36.0) Seconds Sodium (136-145) mEq/L Potassium (3.5-5.1) mEq/L Chloride (98-107) mEq/L Carbon Dioxide (23-29) mEq/L BUN (8-23) mg/dL Creatinine (0.60-1.20) mg/dL Est GFR ( Amer) (> 60) Est GFR (Non-Af Amer) (> 60) BUN/Creatinine Ratio (6-26) Glucose (70-105) mg/dL Calculated Osmolality (280-300) Lactic Acid 0.9 (0.5-2.2) mmol/L Calcium (8.6-10.3) mg/dL Magnesium (1.6-2.6) mg/dL Troponin I (< 0.04) ng/mL TSH (0.340-5.600) mcIU/mL
--- NOTE | 2018-04-22 23:14 | Emergency Department Note ---
Disposition Clinical Impression: Atrial fibrillation with RVR, Acute kidney injury Community acquired pneumonia Qualifiers: Laterality: right Lung location: lower lobe of lung Qualified Code(s): J18.1 - Lobar pneumonia, unspecified organism Disposition: Admitted As Inpatient Condition: Critical General Adult HPI - General Chief complaint: ED Arrhythmia/Palpitations Stated complaint: A FIB Time Seen by Provider: 04/22/18 22:21 Source: patient, family Limitations: no limitations Nursing Notes Reviewed: Yes Vital Signs Reviewed: Yes - History of Present Illness Pain Scale: 0 - Related Data Home Medications Medication Instructions Recorded Confirmed Acetaminophen [Tylenol] 1,000 mg PO Q6HR PRN 10/24/16 10/24/16 Albuterol Sulfate [Albuterol 2 puff IH Q6HR PRN 10/24/16 10/24/16 Inhaler] Atorvastatin Calcium [Lipitor] 20 mg PO HS 10/24/16 10/24/16 Fluticasone/Salmeterol [Advair 1 puff IH BID 10/24/16 10/24/16 250-50 Diskus] Naproxen Sodium [Aleve] 220 mg PO Q12H PRN 10/24/16 10/24/16 Pantoprazole Sodium [Protonix] 40 mg PO HS 10/24/16 10/24/16 Paroxetine [Paxil] 30 mg PO DAILY 10/24/16 10/24/16 Trazodone HCl 150 mg PO HS 10/24/16 10/24/16 Previous Rx's Medication Instructions Recorded Oseltamivir [Tamiflu] 75 mg PO BID #10 capsule 07/10/17 Allergies Allergy/AdvReac Type Severity Reaction Status Date / Time No Known Allergies Allergy Verified 05/01/15 19:31 Past Medical History - Past Medical History Medical history: Reports: other Surgical history: Reports: appendectomy, , colectomy (proctocolectomy with end ileostomy), hysterectomy, other Psychiatric history: Reports: depression 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 - Social History Smoking Status: Never smoker Smokeless Tobacco Status: No Alcohol use: Reports: none Drug use: Reports: none Physical Exam - General Limitations: no limitations General appearance: alert Course Vital Signs Temperature 98.3 F 04/22/18 22:22 Pulse Rate 161 04/22/18 22:22 Respiratory Rate 19 04/22/18 22:22 Blood Pressure 93/70 04/22/18 22:22 O2 Sat by Pulse Oximetry 95 04/22/18 22:22 Temperature 97.7 F 04/23/18 04:00 Pulse Rate 89 04/23/18 07:50 Respiratory Rate 16 04/23/18 06:00 Blood Pressure 80/52 04/23/18 06:00 O2 Sat by Pulse Oximetry 90 04/23/18 06:00 Oxygen Delivery Oxygen Delivery Nasal Cannula Medical Decision Making - Medical Records Medical records reviewed: Yes I reviewed the patient's medical records. - Lab Data Lab results reviewed: Yes I reviewed the patient's lab results. Result diagrams: 04/23/18 04:50 04/23/18 04:50 Lab Results 04/22/18 04/22/18 04/22/18 Range/Units 22:34 22:34 22:34 WBC 24.0 H (4.3-11.1) K/mcL RBC 4.04 (3.82-4.97) M/mcL Hgb 12.2 (11.5-15.4) g/dL Hct 37.9 (35.3-44.9) % MCV 93.8 (83.0-100.0) fL MCH 30.2 (28.0-33.3) pg MCHC 32.2 (31.6-35.5) g/dL RDW 13.7 (11.5-14.5) % Plt Count 218 (140-400) K/mcL MPV 10.2 (9.4-12.4) fL Immature Gran % 5.0 H (0-4) % Seg Neutrophils % 87.5 % Lymphocytes % 2.4 % Monocytes % 4.7 % Eosinophils % 0.2 % Basophils % 0.2 % Neutrophils # 21.0 H (1.6-8.9) K/mcL Lymphocytes # 0.6 (0.6-4.6) K/mcL Monocytes # 1.1 (0.0-1.3) K/mcL Eosinophils # 0.1 (0.0-0.6) K/mcL Basophils # 0.1 (0.0-0.2) K/mcL Platelet Estimate Normal (Normal) PT 15.6 H (9.4-12.1) Seconds INR 1.4 APTT 30.0 (26.0-36.0) Seconds Sodium 133 L (136-145) mEq/L Potassium 3.3 L (3.5-5.1) mEq/L Chloride 102 (98-107) mEq/L Carbon Dioxide 18 L (23-29) mEq/L BUN 27 H (8-23) mg/dL Creatinine 1.63 H (0.60-1.20) mg/dL Est GFR ( Amer) 37 L (> 60) Est GFR (Non-Af Amer) 31 L (> 60) BUN/Creatinine Ratio 17 (6-26) Glucose 164 H (70-105) mg/dL Calculated Osmolality 285 (280-300) Lactic Acid (0.5-2.2) mmol/L Calcium 10.3 (8.6-10.3) mg/dL Magnesium 1.4 L (1.6-2.6) mg/dL Troponin I 0.06 H* (< 0.04) ng/mL TSH 0.415 (0.340-5.600) mcIU/mL 04/23/18 Range/Units 01:47 WBC (4.3-11.1) K/mcL RBC (3.82-4.97) M/mcL Hgb (11.5-15.4) g/dL Hct (35.3-44.9) % MCV (83.0-100.0) fL MCH (28.0-33.3) pg MCHC (31.6-35.5) g/dL RDW (11.5-14.5) % Plt Count (140-400) K/mcL MPV (9.4-12.4) fL Immature Gran % (0-4) % Seg Neutrophils % % Lymphocytes % % Monocytes % % Eosinophils % % Basophils % % Neutrophils # (1.6-8.9) K/mcL Lymphocytes # (0.6-4.6) K/mcL Monocytes # (0.0-1.3) K/mcL Eosinophils # (0.0-0.6) K/mcL Basophils # (0.0-0.2) K/mcL Platelet Estimate (Normal) PT (9.4-12.1) Seconds INR APTT (26.0-36.0) Seconds Sodium (136-145) mEq/L Potassium (3.5-5.1) mEq/L Chloride (98-107) mEq/L Carbon Dioxide (23-29) mEq/L BUN (8-23) mg/dL Creatinine (0.60-1.20) mg/dL Est GFR ( Amer) (> 60) Est GFR (Non-Af Amer) (> 60) BUN/Creatinine Ratio (6-26) Glucose (70-105) mg/dL Calculated Osmolality (280-300) Lactic Acid 0.9 (0.5-2.2) mmol/L Calcium (8.6-10.3) mg/dL Magnesium (1.6-2.6) mg/dL Troponin I (< 0.04) ng/mL TSH (0.340-5.600) mcIU/mL - Radiology Data Radiology results reviewed: Yes I reviewed the patient's radiology results. Chest X-Ray 04/22/18 22:34 IMPRESSION: Patchy right middle lobe opacity may represent consolidation from pneumonia. No evidence of pulmonary edema. D/ / Elian Nava MD / Elian Nava MD Interpreting Provider: Elian Nava MD - EKG Data EKG #1 EKG attestation: Yes I reviewed and interpreted this EKG. EKG results narrative: Repeat EKG after conversion shows a sinus rhythm with ventricular rate of 91. Low voltage precordial leads. No acute ST segment elevation or depression. EKG #2 EKG attestation: Yes I reviewed and interpreted this EKG. EKG results narrative: Repeat EKG after conversion shows a sinus rhythm with ventricular rate of 91. Low voltage precordial leads. No acute ST segment elevation or depression. Critical Care Time Critical Care Time: Yes Total Critical Care Time: 60 Attestation: Critical care performed: Time is exclusive of separately billable procedures. Time includes: direct patient care, patient reassessment, coordination of patient care, interpretation of data (laboratory data, radiology data, and respiratory data), review of patient's medical records, medical consultation and documentation of patient care. Procedures included in critical care time: Procedures excluded from critical care time: Attestation Statement - Attestation Attestation: I, Prince Brooke MD, personally evaluated this patient and discussed their management with the resident physician. I reviewed the resident's note and agree with the documented findings, medical decision making, and plan of care. 73-year-old female presents to the emergency department with a complaint of generalized weakness and palpitations. Patient started feeling bad yesterday when she developed some weakness and fatigue for the cough and congestion. She was seen this morning at an urgent care and had a chest x-ray and was diagnosed with possible early pneumonia. She was started on Zithromax. reports she does have a history of atrial fibrillation once in the past related to an episode of pneumonia while she was in the hospital. This evening she began feeling worse and complained of increased weakness and fatigue and palpitations with her heart racing. On arrival here the emergency Department patient is in atrial fib with RVR with a heart rate in the 160s. Systolic blood pressure 93. Blood pressure improved to 112 without any intervention. She denies any chest pain or shortness of breath. On examination patient is a well-developed well-nourished well-appearing elderly female in no acute distress. She is alert and oriented 3. There is no cyanosis or diaphoresis. Breath sounds are clear and equal bilaterally. Heart is tachycardic and irregularly irregular. Abdomen soft and nontender with normal bowel sounds. EKG shows atrial fibrillation with RVR with a ventricular rate of 162. Scattered ST segment depression, likely rate related. Chest x-ray shows right middle lobe pneumonia. Labs reviewed. The patient was started on Cardizem infusion at 5 mg. She did not receive a bolus due to her hypotension. Blood pressure did improve some with fluids. Heart rate slowed with the Cardizem and patient converted to a normal sinus rhythm. She felt significantly better after the conversion to sinus rhythm but continues to be mildly hypotensive. She has remained alert and oriented with good skin color and normal mentation. No cyanosis. The hospitalist, Dr. Edwards, was consulted and accepted admission of the patient.
[2018-04-22 23:25] LABS: Basophils # 0.1 K/mcL (0.0-0.2); Basophils % 0.2 %; Eosinophils # 0.1 K/mcL (0.0-0.6); Eosinophils % 0.2 %; Hematocrit 37.9 % (35.3-44.9); Hemoglobin 12.2 g/dL (11.5-15.4); Lymphocytes # 0.6 K/mcL (0.6-4.6); Lymphocytes % 2.4 %; Mean Corpuscular HGB Conc 32.2 g/dL (31.6-35.5); Mean Corpuscular Hemoglobin 30.2 pg (28.0-33.3); Mean Corpuscular Volume 93.8 fL (83.0-100.0); Mean Platelet Volume 10.2 fL (9.4-12.4); Monocytes # 1.1 K/mcL (0.0-1.3); Monocytes % 4.7 %; Platelet Count 218 K/mcL (140-400); Red Blood Count 4.04 M/mcL (3.82-4.97); Red Cell Distribution Width 13.7 % (11.5-14.5); Segmented Neutrophils % 87.5 %
[2018-04-22 23:36] LABS: INR 1.4; Prothrombin Time 15.6 Seconds (9.4-12.1)
[2018-04-22 23:46] LABS: Calcium 10.3 mg/dL (8.6-10.3); Magnesium 1.4 mg/dL (1.6-2.6); Potassium 3.3 mEq/L (3.5-5.1)
[2018-04-22 23:51] LABS: Platelet Estimate Normal (Normal)
[2018-04-22] MEDS ORDERED: 0.9 % Sodium Chloride 1,000 ML ONE (23:53)
[2018-04-22 23:54] LABS: Troponin I 0.06 ng/mL (< 0.04)
[2018-04-23] LABS: Thyroid Stimulating Hormone 0.415 mcIU/mL (0.340-5.600)
[2018-04-23] MEDS ORDERED: *HR* Digoxin 0.5 MG/2 ML AMPUL IVP STA (00:14)
[2018-04-23] MEDS ORDERED: cefTRIAXone 2,000 MG in 0.9 % Sodium Chloride Mini Bag 100 ML IVPB ONE (01:32)
[2018-04-23] MEDS ORDERED: Azithromycin 500 MG in D5% in Water 250 ML IVPB ONE (01:32)
[2018-04-23] MEDS ORDERED: Aspirin 325 MG TABLET PO ONE (02:02)
[2018-04-23] MEDS ORDERED: Ringers Solution, Lactated 1,000 ML IVC SCH (02:30)
[2018-04-23] MEDS ORDERED: Albuterol 2.5 MG/3 ML NEBULIZER IH PRN (02:37)
--- NOTE | 2018-04-23 03:18 | Internal Med History&Physical ---
Date of Encounter: 04/23/18 Time of Encounter: 03:16 Internal Medicine - H&P: HPI Chief complaint: malaise Admitted From: Home Plans for Post Hospital Care: Home History of present illness: Louise Melchor is a 73 year old relatively healthy woman who was last admitted here in September 2016 at which time she was diagnosed with sepsis due to community-acquired pneumonia complicated by atrial fibrillation with rapid ventricular response which was self-limited. She presents now to the emergency room brought in by her with complaints of 2 days of generalized malaise, sensation of chest congestion, increasing shortness of breath, fever of 101.5 at home and chills. On arrival here she was seen to be significantly tachycardic and hypotensive with EKG demonstrating atrial fibrillation at a rate of over 150. She was also seen to have a leukocyte count of 24 but normal lactate level and chest x-ray as reviewed independently by me was revealing of a right lower lung field opacity. She was started on diltiazem drip, ceftriaxone and azithromycin and given fluid resuscitation as well. After about 4 hours she reverted to normal sinus rhythm and appears more stable however her blood pressure still remains precariously low. On my assessment she was lying in bed in no acute distress but notably fatigued and without complaints of chest pain. She did have tussive episodes in front of me which were productive. She is now admitted for further management. She states that she was never given any antiplatelet or anticoagulant therapy after her last episode of A. fib as it was self-limited and has not recurred since then until now. She does state that the precipitating factor for her coming in tonight was because she started to feel palpitations and that her heartbeat was irregular at home. She reports a medical history of ulcerative colitis and surgical history of total proctocolectomy with ileostomy placement. Denies smoking and illicit drug use history. Family history was obtained and found noncontributory. Past Med Surg Social Fam HX - Past Medical History Medical history: other Additional medical history: Chronic back pain. Psychiatric history: depression - Past Surgical History Surgical History: appendectomy, , colectomy (proctocolectomy with end ileostomy), hysterectomy, other - Social History Smoking Status: Never smoker Smokeless Tobacco Status: No Alcohol use: none Drug use: none - Family History Mother Living Status: Internal Medicine - H&P: Meds Acetaminophen [Tylenol] 1,000 mg PO Q6HR PRN 10/24/16 [History] Albuterol Sulfate [Albuterol Inhaler] 2 puff IH Q6HR PRN 10/24/16 [History] Atorvastatin Calcium [Lipitor] 20 mg PO HS 10/24/16 [History] Fluticasone/Salmeterol [Advair 250-50 Diskus] 1 puff IH BID 10/24/16 [History] Naproxen Sodium [Aleve] 220 mg PO Q12H PRN 10/24/16 [History] Pantoprazole Sodium [Protonix] 40 mg PO HS 10/24/16 [History] Paroxetine [Paxil] 30 mg PO DAILY 10/24/16 [History] Trazodone HCl 150 mg PO HS 10/24/16 [History] Oseltamivir [Tamiflu] 75 mg PO BID #10 capsule 07/10/17 [Rx] Allergy/AdvReac Type Severity Reaction Status Date / Time No Known Allergies Allergy Verified 05/01/15 19:31 All Systems PM: A 10-system review of systems was performed and is negative for pertinent findings except as documented above in the HPI. - Constitutional Vitals: Temp Pulse Resp BP Pulse Ox 98.3 F 92 20 86/60 98 04/22/18 22:22 04/23/18 02:59 04/23/18 02:59 04/23/18 02:59 04/23/18 02:59 Exam: Vitals: Reviewed General: Pleasant, conversant, NAD Skin: Warm and supple HEENT: Slightly dry mucous membranes. Mild conjunctivae pallor. Neck: No lymphadenopathy. No JVD. No carotid bruits. No palpable thyroid. Chest: Reduced thoracic expansion with reduced breath sounds at the right lower lobe but no wheezes or rhonchi. Heart: Normal S1 & S2; rhythmic. No rubs or murmurs. Abdomen: Non-distended, soft and non-tender to palpation. Ileostomy bag in situ Extremities: No clubbing, cyanosis or edema. No calf tenderness. Normal distal pulses. Neurological: Awake, alert and oriented to person, place and time. No focal deficits. Psych: Affect appropriate. Internal Med - H&P Results - Labs CBC & Chem 7: 04/22/18 22:34 04/22/18 22:34 Labs: Short CBC 04/22/18 Range/Units 22:34 WBC 24.0 H (4.3-11.1) K/mcL Hgb 12.2 (11.5-15.4) g/dL Hct 37.9 (35.3-44.9) % Plt Count 218 (140-400) K/mcL Neutrophils # 21.0 H (1.6-8.9) K/mcL BMP 04/22/18 22:34 Sodium 133 L Potassium 3.3 L Chloride 102 Carbon Dioxide 18 L BUN 27 H Creatinine 1.63 H Glucose 164 H Calcium 10.3 Cardiac Enzymes 04/22/18 Range/Units 22:34 Troponin I 0.06 H* (< 0.04) ng/mL - Impressions ITS Impressions Chest X-Ray 04/22/18 22:34 IMPRESSION: Patchy right middle lobe opacity may represent consolidation from pneumonia. No evidence of pulmonary edema. D/ / Elian Nava MD / Elian Nava MD Interpreting Provider: Elian Nava MD - Assessment and plan (1) Atrial fibrillation with rapid ventricular response Current Visit: Yes Status: Acute Assessment and plan: Seems to have been trigerred by the septic state upon presentation and has now reverted back to normal sinus rhythm. No indication for anticoagulation at this time seeing as it is paroxysmal and seemingly has a precipitating cause that is identified for the second time and being treated. Electrolyte imbalance detected could be another contributory factor. Shall continue to monitor on telemetry and administer rate control agents if it recurs. Obtain TTE for structural assessment. Troponin elevation likely secondary to the extreme rate causing myocardial strain and no further intervention necessary for this at the moment. (2) Severe sepsis Current Visit: Yes Status: Acute Assessment and plan: As evidenced by high grade leukocytosis, tachycardia and hypotension that is poorly responsive to fluid resuscitation. Secondary to community acquired pneumonia. Will continue fluid resuscitation, blood cultures and empiric abx as indicated. (3) Community acquired pneumonia Current Visit: Yes Status: Acute Assessment and plan: Will continue ceftriaxone/azithromycin for now. Send sputum culture, urine Strep/Legionella Ag. F/u BCx. Qualifiers: Laterality: right Lung location: lower lobe of lung Qualified Code(s): J18.1 - Lobar pneumonia, unspecified organism (4) ROWAN (acute kidney injury) Current Visit: Yes Status: Acute Assessment and plan: Notable, likely secondary to poor fluid intake due to 2 days of illness coupled with septic state and decreased perfusion from afib. Will resuscitate with fluids and recheck BMP. (5) Hypomagnesemia Current Visit: Yes Status: Acute Assessment and plan: 2grs MgSO4 administered. Will recheck in the morning. Could be an attributable cause to arrhythmia as well. (6) Ileostomy, has currently Current Visit: Yes Status: Acute Assessment and plan: Care and bag changes per nursing. (7) DVT prophylaxis Current Visit: Yes Status: Acute Assessment and plan: SubQ heparin indicated. - Time Spent With Patient Total time spent is greater than 50% in coordination of care (as documented) at patient's floor/unit and/or counseling patient: Greater than 35 minutes
[2018-04-23 05:18] LABS: Hematocrit 29.8 % (35.3-44.9); Mean Corpuscular HGB Conc 31.9 g/dL (31.6-35.5); Mean Corpuscular Hemoglobin 30.3 pg (28.0-33.3); Mean Corpuscular Volume 94.9 fL (83.0-100.0); Mean Platelet Volume 10.4 fL (9.4-12.4); Platelet Count 172 K/mcL (140-400); Red Blood Count 3.14 M/mcL (3.82-4.97)
[2018-04-23 05:22] LABS: Hemoglobin 9.5 g/dL (11.5-15.4)
[2018-04-23 05:34] LABS: Calcium 7.9 mg/dL (8.6-10.3); Magnesium 2.1 mg/dL (1.6-2.6); Potassium 3.8 mEq/L (3.5-5.1)
[2018-04-23 05:35] LABS: Albumin 2.9 g/dL (3.5-5.7); Albumin/Globulin Ratio 1.1 (1.1-2.2); Bilirubin,Direct 0.1 mg/dL (0.0-0.2); Bilirubin,Indirect 0.1 mg/dL (0.0-1.2); Bilirubin,Total 0.2 mg/dL (0.3-1.0); Globulin 2.6 g/dL (2.4-3.5); Total Protein 5.5 g/dL (6.4-8.9)
[2018-04-23] MEDS ORDERED: *HR* Heparin 5,000 UNIT/ML VIAL SQ SCH (06:00)
[2018-04-23 06:05] LABS: Adenovirus Not Detected (Not Detect); Bordetella Pertussis Not Detected (Not Detect); Chlamydophila pneumoniae Not Detected (Not Detect); Coronavirus 229E Not Detected (Not Detect); Coronavirus HKU1 Not Detected (Not Detect); Coronavirus NL63 Not Detected (Not Detect); Coronavirus OC43 Not Detected (Not Detect); Human Metapneumovirus Not Detected (Not Detect); Human Rhinovirus/Enterovirus Not Detected (Not Detect); Influenza A Subtype 2009 H1 Not Detected (Not Detect); Influenza A Untypeable Not Detected (Not Detect); Influenza B Not Detected (Not Detect); Mycoplasma pneumoniae Not Detected (Not Detect); Parainfluenza Virus 1 Not Detected (Not Detect); Parainfluenza Virus 2 Not Detected (Not Detect); Parainfluenza Virus 3 Not Detected (Not Detect); Parainfluenza Virus 4 Not Detected (Not Detect); Respiratory Syncytial Virus Not Detected (Not Detect)
[2018-04-23 06:57] LABS: Dohle Bodies Present (Not Present); Lymphocytes # 1.6 K/mcL (0.6-4.6); Monocytes # 0.2 K/mcL (0.0-1.3); Neutrophils # 17.7 K/mcL (1.6-8.9)
[2018-04-23 06:58] LABS: Platelet Estimate Normal (Normal)
--- NOTE | 2018-04-23 08:44 | Internal Med Progress Note ---
<Mackenzie Kumar - Last Filed: 04/23/18 10:19> Hospitalist Progress Note - Encounter Date of Encounter: 04/23/18 Time of Encounter: 08:37 - Subjective Interval History: 73F with PMH UC with protocolectomy with ileostomy, COPD, presented to ED with complaints of 2 days weakness, palpitations. Found to be in Afib with RVR, hy potensive, leukocytosis, started on Cardizem drip, given fluids. CXR concerning for RML PNA, started on empiric Abx Ceftriaxone and Azithromycin. Mg and K+ found to be low at 1.4 and 3.3 respectively, repleted with 2g MgSO4 and 40meq KCl. Pt admitted to 2N, but overflow to ICU. Afib converted to NSR around 0200 last night, Cardizem drip stopped. Mg 2.1, K+ 3.8 this AM. Cr 1.63 at admission, 1.13 this AM. Pt remains normothermic. BP soft 90s/50s. Pt scheduled for KEVIN today, transfer orders placed to telemetry. Pt states that she is feeling better this morning, still complaining of cough and sinus congestion but sinus congestion is chronic for her. Plan to continue Abx today and repeat CXR federica orrow morning. Monitor blood pressures. - Exam Vitals: Temp Pulse Resp BP Pulse Ox 97.5 F L 89 16 80/52 90 04/23/18 08:00 04/23/18 07:50 04/23/18 06:00 04/23/18 06:00 04/23/18 06:00 Exam: General: A&O x 3. No acute distress. Well developed, well nourished. Head: atraumatic, normocephalic. ENT: No conjunctival injection, no scleral icterus. PERRLA. EOMI. Oropharynx non- erythematous. mucous membranes moist. Neuro: No focal deficits, no speech deficit, no facial droop, mentating well. Pulm: Wheezes appreciated in right lower quadrant, clear in other quadrants. Cardio: RRR no m/r/g. Chest not tender to palpation. Abd: Soft, non-distended. Normoactive bowel sounds. Non-tender to palpation. No guarding. Non rigid. Extremities: Radial pulses 2+ nichole, dorsalis pedis/posterior tibialis 2+ nichole. No LE edema. No cyanosis, clubbing. Skin: warm, dry, intact. No rashes. Psych: Appropriate mood and affect. Answers questions appropriately. Cooperative with exam. - Assessment and Plan (1) Community acquired pneumonia Status: Acute Assessment and Plan: - RML opacity observed on CXR from 04/22/18 - Sputum culture, urine Strep/Legionella Ag pendings - BC pending - Continue ceftriaxone/azithromycin - Repeat CXR 04/24/18 - monitor, maintain Sp02 >90% (2) ROWAN (acute kidney injury) Status: Acute Assessment and Plan: Cr 1.63 at admit, 1.13 this AM Likely due to poor fluid intake over last 2 days continue to monitor (3) Ileostomy, has currently Status: Acute Assessment and Plan: Care and bag changes per nursing (4) Atrial fibrillation with rapid ventricular response Status: Acute Assessment and Plan: - Hx of AFIB RVR with previous PNA - Now NSR - Electrolyte imbalance yesterday with Mg and K, now repleted - Continue to monitor - KEVIN scheduled for this AM for structural assessment - No indication for AC at this time - monitor serial troponin Q8 (5) Hypomagnesemia Status: Resolved Assessment and Plan: 1.4 at admit, 2.1 this morning after 2g MGSO4 - continue to monitor, replete as necessary to maintain Mg >2.0 (6) Severe sepsis Status: Acute Assessment and Plan: - WBC 24 at admit, 19 now hypotensive 80s/50s normothermic Lactic 0.9 this am Pulse 80s today - Secondary to CA PNA - awaiting BCs, continue empiric Abx - Continue to monitor (7) DVT prophylaxis Status: Acute Assessment and Plan: Heparin 5000u SQ Q8 DVT Prophylaxis: Heparin 5000u SQ Q8 - Time Spent with Patient Total time spent is greater than 50% in coordination of care (as documented) at patient's floor/unit and/or counseling patient: Internal Medicine: Result - Labs CBC & Chem 7: 04/23/18 04:50 04/23/18 04:50 Labs: Short CBC 04/22/18 04/23/18 Range/Units 22:34 04:50 WBC 24.0 H 19.4 H (4.3-11.1) K/mcL Hgb 12.2 9.5 L D (11.5-15.4) g/dL Hct 37.9 29.8 L (35.3-44.9) % Plt Count 218 172 (140-400) K/mcL Neutrophils # 21.0 H 17.7 H (1.6-8.9) K/mcL BMP 04/22/18 04/23/18 22:34 04:50 Sodium 133 L 135 L Potassium 3.3 L 3.8 Chloride 102 108 H Carbon Dioxide 18 L 17 L BUN 27 H 24 H Creatinine 1.63 H 1.13 Glucose 164 H 168 H Calcium 10.3 7.9 L Cardiac Enzymes 04/22/18 Range/Units 22:34 Troponin I 0.06 H* (< 0.04) ng/mL Liver Function 04/23/18 Range/Units 04:50 Total Bilirubin 0.2 L (0.3-1.0) mg/dL Direct Bilirubin 0.1 (0.0-0.2) mg/dL AST 11 L (13-39) Units/L ALT 8 (7-52) Units/L Alkaline Phosphatase 74 (34-104) Units/L Albumin 2.9 L (3.5-5.7) g/dL - ABG Interpretation ABG results: PT/INR, D-dimer PT 15.6 Seconds (9.4-12.1) H 04/22/18 22:34 - Impressions Impressions Chest X-Ray 04/22/18 22:34 IMPRESSION: Patchy right middle lobe opacity may represent consolidation from pneumonia. No evidence of pulmonary edema. D/ / 04/23/2018 05:43:30 Elian Nava MD / shay Interpreting Provider: Elian Nava MD Consult Discharge Plan - Plan Instructions: Atrial Fibrillation (DC), Community-acquired Pneumonia (DC) Referrals: José Miguel Coelho DO [Primary Care Provider] - (follow up in 7 to 10 days ) Prescriptions: RX: Apixaban [Eliquis] 5 mg PO BID #60 tablet RX: Azithromycin 250 mg PO DAILY #4 tablet RX: Metoprolol XL (24 HR) Succ [Toprol Xl] 12.5 mg PO DAILY #30 tab.er.24h <El Sorto - Last Filed: 04/25/18 08:03> Hospitalist Progress Note - Exam Vitals: Temp Pulse Resp BP Pulse Ox 99.4 F 92 17 116/58 91 04/24/18 12:24 04/24/18 12:24 04/24/18 12:24 04/24/18 12:24 04/24/18 12:24 - Assessment and Plan (1) Severe sepsis due to Streptococcus pneumoniae with acute organ dysfunction Status: Resolved (2) Pneumonia Status: Acute (3) Community acquired pneumonia Status: Acute (4) ROWAN (acute kidney injury) Status: Resolved (5) Ileostomy, has currently Status: Acute (6) Atrial fibrillation with rapid ventricular response Status: Acute (7) Hypomagnesemia Status: Resolved (8) Severe sepsis Status: Resolved (9) PAF (paroxysmal atrial fibrillation) Status: Chronic - Time Spent with Patient Total time spent is greater than 50% in coordination of care (as documented) at patient's floor/unit and/or counseling patient: Internal Medicine: Result - Labs CBC & Chem 7: 04/24/18 00:26 04/24/18 00:26 - ABG Interpretation ABG results: PT/INR, D-dimer PT 15.6 Seconds (9.4-12.1) H 04/22/18 22:34 - Impressions Impressions Echocardiogram 04/23/18 02:26 Impressions: Technically adequate exam. LVEF 60-65%. Mild left ventricular diastolic dysfunction. Normal right ventricular structure and function. Trace tricuspid regurgitation. Mild pulmonary hypertension. There is a small pericardial effusion present. - Attending Attestation Please see event note of this date. <Mackenzie Kumar - Last Filed: 04/23/18 10:19> (1) Community acquired pneumonia Qualifiers: Laterality: right Lung location: lower lobe of lung Qualified Code(s): J18.1 - Lobar pneumonia, unspecified organism <El Sorto - Last Filed: 04/25/18 08:03> (2) Pneumonia Qualifiers: Pneumonia type: due to Pneumococcus Laterality: bilateral Lung location: lower lobe of lung Qualified Code(s): J13 - Pneumonia due to Streptococcus pneumoniae (3) Community acquired pneumonia Qualifiers: Laterality: right Lung location: lower lobe of lung Qualified Code(s): J18.1 - Lobar pneumonia, unspecified organism
[2018-04-23] MEDS ORDERED: Aspirin 81 MG TAB.CHEW PO SCH (09:00)
--- NOTE | 2018-04-23 11:28 | Cardiology Consult Note ---
Addendum entered and electronically signed by Brian Haynes MD 04/23/18 13:10: I examined this patient and my medical decision-making was reviewed with the MANAGER ANDROID. I agree with the documented findings, disposition and treatment plan as described except to the extent set forth below. AP: PAF - second occurrence. CV score 2 Minimally elevated troponin likely demand ischemia Rate control strategy. Despite likely stressors as cause, patient still at risk for CVA unless we can demonstrate no AF burden otherwise. Discussed possible senior care monitoring - ie loop recorder - but at this point, she and family will pursue chronic anticoagulation. We discussed Eliquis. Await TTE results. Thank you for the consult, Brian Haynes MD [facility] Original Note: Date of Encounter: 04/23/18 Time of Encounter: 11:26 Assessment and Plan (1) PAF (paroxysmal atrial fibrillation) Current Visit: Yes Status: Acute Reported occurrence of PAF at [facility] 09/2016 in setting of PNA and sepsis. Recurrence on this admission--again in setting of sepsis and PNA--A-Fib RVR HR 160s. Was started on Cardizem gtt and has converted back to SR. Electrolyte imbalances. K was 3.3 and Mag 1.4 on presentation--both replaced. TSH WNL. Not on any AV marlene blockers at home. BP borderline. Will start low dose BB To prol XL 12.5mg daily. [id number] 2 (Age, Female) High CVA risk. PAF occurs with stressors--PNA/sepsis. However, with known recurrence and increased CVA risk, recommend senior care AC. Discussed Coumadin vs NOACs, prefers NOAC, specifically Eliquis. Will kinney check. TTE to evaluate structure and function. (2) Elevated troponin Current Visit: Yes Status: Acute Mild troponin elevation 0.06 in setting of PAF RVR, PNA, sepsis, ROWAN now improved. Demand ischemia, nondiagnostic for ACS. Denies CP. Will trend another troponin. Check TTE to evaluate structure and function. Discussion w patient/family: The assessment and plan as outlined above was discussed with the patient and/or family members who expressed understanding and agreement. All questions were answered. Thank you for involving us in the care of your patient. Please call with any questions. I will discuss all the above with Dr. Haynes and make changes as necessary. History of Present Illness Consult date: 04/23/18 Consult reason: PAF Chief complaint: palpitations, fever/chills History of present illness: Ms. Melchor is a 73 year old female with PMH of ulcerative colitis s/p total proctocolectomy s/p ileostomy, episode of PAF 09/2016 at [facility] in setting of sepsis and PNA. She presented to ED brought in by her with complaints of 2 days of generalized malaise, palpitations, fever of 101.5 at home and chills. On arrival here she was found to be tachycardic A-Fib RVR and hypotensive. Diagnosed with sepsis and PNA. Was started on cardizem gtt-- after about 4 hours she converted back to sinus rhythm. She denies chest pain. Reports not being started on anticoagulation at [facility] last year since it was her first occurrence of A-Fib in setting of PNA and sepsis. Initial troponin 0.06. Cardiology consulted for further recs. Past Med Surg Social Fam HX - Past Medical History Medical history: other Additional medical history: Chronic back pain. Psychiatric history: depression - Past Surgical History Surgical History: appendectomy, , colectomy (proctocolectomy with end ileostomy), hysterectomy, other - Social History Smoking Status: Never smoker Smokeless Tobacco Status: No Alcohol use: none Drug use: none - Family History Mother Living Status: Medications and Allergies Acetaminophen [Tylenol] 1,000 mg PO Q6HR PRN 10/24/16 [History] Albuterol Sulfate [Albuterol Inhaler] 2 puff IH Q6HR PRN 10/24/16 [History] Atorvastatin Calcium [Lipitor] 20 mg PO HS 10/24/16 [History] Fluticasone/Salmeterol [Advair 250-50 Diskus] 1 puff IH BID 10/24/16 [History] Naproxen Sodium [Aleve] 220 mg PO Q12H PRN 10/24/16 [History] Paroxetine [Paxil] 30 mg PO DAILY 10/24/16 [History] Trazodone HCl 150 mg PO HS 10/24/16 [History] Estrogens, Conjugated [Premarin Cream] 1 appl VG 2XW 04/23/18 [History] Omeprazole [PriLOSEC] 20 mg PO DAILY 04/23/18 [History] Allergy/AdvReac Type Severity Reaction Status Date / Time No Known Allergies Allergy Verified 05/01/15 19:31 All Systems Review: The remainder of the systems were reviewed and are negative - Constitutional Constitutional: chills, fever(s), malaise - Cardiovascular Cardiovascular: as per HPI, palpitations - Respiratory Respiratory: cough Physical Examination Vital Signs, Last 4 Hours Temp Pulse BP 04/23/18 11:05 91 111/58 04/23/18 08:00 97.5 F L 04/23/18 07:50 89 Vital Signs Temp Pulse Resp BP Pulse Ox 04/23/18 11:05 91 111/58 04/23/18 08:00 97.5 F L 04/23/18 07:50 89 04/23/18 06:00 84 16 80/52 90 04/23/18 04:00 97.7 F 84 12 98/53 96 04/23/18 03:38 18 87/68 04/23/18 02:59 92 20 86/60 98 04/23/18 02:37 95 20 82/68 95 04/23/18 02:05 91 16 80/52 97 04/23/18 01:31 96 21 87/68 98 04/23/18 01:08 153 20 86/60 99 04/23/18 01:00 149 16 86/62 95 04/23/18 00:30 140 18 99/61 97 04/23/18 00:15 140 22 82/50 97 04/23/18 00:00 149 12 86/55 95 04/22/18 23:44 153 23 82/50 96 04/22/18 22:45 97 04/22/18 22:42 157 23 101/55 97 04/22/18 22:22 98.3 F 161 19 93/70 95 Intake and Output 04/22/18 04/23/18 04/23/18 23:59 07:59 15:59 Intake Total 2464 / 2464 Balance 2464 / 2464 Intake: IV Fluids 2464 / 2464 0.9 % Sodium Chloride 1,000 ML 1999 / 1999 @ 999 mls/hr IVC .Q1H1M ONE Rx# :[id number] Cardizem 50 MG In 0.9 % Sodium 10 / 10 Chloride 40 ML @ 5 MG/HR 5 mls/ hr IVC .Q10H [facility] Rx#:[id number] Zithromax 500 mg In Dextrose 5% 250 / 250 250 ML @ 252 mls/hr IVPB ONCE ONE Rx#:[id number] Magnesium Sulfate 2 GM In 0.9 % 104 / 104 Sodium Chloride 100 ML @ 104 mls/hr IVPB ONCE ONE Rx#: [id number] Rocephin 2,000 MG In 0.9 % 100 / 100 Sodium Chloride (Mini-Bag +) 100 ML @ 200 mls/hr IVPB ONCE ONE Rx#:[id number] Other: # Urine Diapers 1 # Bowel Movements 1 Weight 60.781 kg 64.8 kg Blood Glucose* 173 Patient Weight 04/23/18 23:59 Weight 64.8 kg General: Conversant, No Apparent Distress HEENT: Atraumatic, Normocephaly, Mucus Membranes Moist Neck: No JVD, Normal carotid pulses Cardiac: Reg Rate and Rhythm, Normal S1 and S2, No Murmur Lungs: Normal Breath Sounds, No Wheeze, Rales, Rhonchi Neuro: Alert and responsive, No focal deficits noted Abdomen: Soft, Non-Tender Skin: No rashes noted on visualized skin Musculoskeletal: No Chest Wall Tenderness Extremities: No Clubbing, No Cyanosis, No Edema, Normal Pulses Results 04/23/18 04:50 04/23/18 04:50 Lab Results 04/22/18 04/22/18 04/22/18 22:34 22:34 22:34 WBC 24.0 H Hgb 12.2 Hct 37.9 Plt Count 218 INR 1.4 APTT 30.0 Sodium 133 L Potassium 3.3 L Chloride 102 Carbon Dioxide 18 L BUN 27 H Creatinine 1.63 H Glucose 164 H Calcium 10.3 Magnesium 1.4 L Total Bilirubin AST ALT Alkaline Phosphatase Troponin I 0.06 H* TSH 0.415 04/23/18 04/23/18 04/23/18 04:50 04:50 04:50 WBC 19.4 H Hgb 9.5 L D Hct 29.8 L Plt Count 172 INR APTT Sodium 135 L Potassium 3.8 Chloride 108 H Carbon Dioxide 17 L BUN 24 H Creatinine 1.13 Glucose 168 H Calcium 7.9 L Magnesium 2.1 Total Bilirubin 0.2 L AST 11 L ALT 8 Alkaline Phosphatase 74 Troponin I TSH Short CBC 04/23/18 04/22/18 Range/Units 04:50 22:34 WBC 19.4 H 24.0 H (4.3-11.1) K/mcL Hgb 9.5 L D 12.2 (11.5-15.4) g/dL Hct 29.8 L 37.9 (35.3-44.9) % Plt Count 172 218 (140-400) K/mcL Neutrophils # 17.7 H 21.0 H (1.6-8.9) K/mcL BMP 04/23/18 04/22/18 Range/Units 04:50 22:34 Sodium 135 L 133 L (136-145) mEq/L Potassium 3.8 3.3 L (3.5-5.1) mEq/L Chloride 108 H 102 (98-107) mEq/L Carbon Dioxide 17 L 18 L (23-29) mEq/L BUN 24 H 27 H (8-23) mg/dL Creatinine 1.13 1.63 H (0.60-1.20) mg/dL Glucose 168 H 164 H (70-105) mg/dL Calcium 7.9 L 10.3 (8.6-10.3) mg/dL Cardiac Enzymes 04/22/18 Range/Units 22:34 Troponin I 0.06 H* (< 0.04) ng/mL Liver Function 04/23/18 Range/Units 04:50 Total Bilirubin 0.2 L (0.3-1.0) mg/dL Direct Bilirubin 0.1 (0.0-0.2) mg/dL AST 11 L (13-39) Units/L ALT 8 (7-52) Units/L Alkaline Phosphatase 74 (34-104) Units/L Albumin 2.9 L (3.5-5.7) g/dL Impressions Chest X-Ray 04/22/18 22:34 IMPRESSION: Patchy right middle lobe opacity may represent consolidation from pneumonia. No evidence of pulmonary edema. D/ / 04/23/2018 05:43:30 Elian Nava MD / shay Interpreting Provider: Elian Nava MD Active Medications Acetaminophen (Tylenol) 1,000 mg PO Q6HR PRN PRN Reason: Pain Stop: 10/23/18 02:24 Albuterol Sulfate (Proventil Neb) 2.5 mg IH [id number] PRN; Protocol PRN Reason: Shortness Of Breath/Wheezing Stop: 10/23/18 02:38 Aspirin (Aspirin) 81 mg PO DAILY NIXON Stop: 10/23/18 09:01 Last Admin: 04/23/18 07:46 Dose: 81 mg Atorvastatin Calcium (Lipitor) 20 mg PO HS NIXON Stop: 10/23/18 21:01 Budesonide/Formoterol Fumarate (Symbicort) 2 puff IH BIDRESP [facility] Stop: 10/23/18 10:01 Heparin Sodium (Porcine) (Heparin) 5,000 unit SQ Q8HCO [facility]ON Stop: 10/23/18 06:01 Last Admin: 04/23/18 06:17 Dose: 5,000 unit Azithromycin 500 mg/ Dextrose 250 mls @ 252 mls/hr IVPB Q24H [facility] Stop: 10/23/18 21:01 Ceftriaxone Sodium 1,000 mg/ (Sterile Water) 10 mls @ 600 mls/hr IVPB DA PHILLIP@2200 [facility] Stop: 10/23/18 22:01 Naproxen (Naprosyn) 250 mg PO Q12H PRN PRN Reason: Pain Omeprazole (Prilosec) 20 mg PO HS [facility] Stop: 10/23/18 21:01 Paroxetine HCl (Paxil) 30 mg PO DAILY [facility]; Protocol Stop: 10/23/18 09:01 Last Admin: 04/23/18 07:46 Dose: 30 mg Trazodone HCl (Trazodone) 150 mg PO HS [facility] Stop: 10/23/18 21:01 - EKG Interpretation EKG results cardiology: personally reviewed (A-Fib RVR), other (12 hr tele AVG HR 87, now SR) Consult Discharge Plan - Plan Referrals: José Miguel Coelho DO [Primary Care Provider] -
[2018-04-23] MEDS ORDERED: Metoprolol XL (24 HR) Succ 25 MG TAB.ER.24H PO SCH (12:00)
[2018-04-23] MEDS: Budesonide/Formoterol 80/4.5 MDI IH SCH ×2 (12:56→21:38)
[2018-04-23] MEDS ORDERED: *HR* Enoxaparin 60 MG/0.6 ML SYRINGE SQ STA (14:31)
--- NOTE | 2018-04-23 19:24 | Event Note ---
Date of Encounter: 04/23/18 Time of Encounter: 14:26 - Cardiology Event Note Troponins 0.06, 0.17. Will check a third troponin this evening. Still suspect demand ischemia in setting of A-Fib RVR, sepsis, PNA, ROWAN. TTE ordered, not yet completed. Li check Eliquis--$200/month. Pt reports this is affordable. Discussed with Dr. Haynes. Give dose of therapeutic Lovenox now for AC. If no significant echo findings and no significant rise in troponin, plan to start Eliquis 5mg BID and sign off with outpt follow. Will follow-up on TTE and troponin in AM.
[2018-04-23] MEDS ORDERED: traZODone 50 MG TABLET PO SCH (21:00)
[2018-04-23] MEDS ORDERED: Azithromycin 500 MG in D5% in Water 250 ML IVPB SCH (21:00)
[2018-04-23] MEDS ORDERED: cefTRIAXone 1,000 MG in Water for inj. (sterile) 20 ML 10 ML IVPB SCH (22:00)
[2018-04-24 00:44] LABS: Basophils % 0.2 %; Eosinophils # 0.2 K/mcL (0.0-0.6); Eosinophils % 1.6 %; Hematocrit 31.1 % (35.3-44.9); Hemoglobin 10.1 g/dL (11.5-15.4); Immature Granulocytes % 0.4 % (0-4); Lymphocytes # 1.1 K/mcL (0.6-4.6); Lymphocytes % 8.2 %; Mean Corpuscular HGB Conc 32.5 g/dL (31.6-35.5); Mean Corpuscular Hemoglobin 30.1 pg (28.0-33.3); Mean Corpuscular Volume 92.8 fL (83.0-100.0); Monocytes # 0.6 K/mcL (0.0-1.3); Monocytes % 4.1 %; Neutrophils # 11.8 K/mcL (1.6-8.9); Platelet Count 238 K/mcL (140-400); Red Blood Count 3.35 M/mcL (3.82-4.97); Red Cell Distribution Width 13.9 % (11.5-14.5); Segmented Neutrophils % 85.5 %
[2018-04-24 00:46] LABS: VBG Ionized Calcium 1.19 mmol/L (1.15-1.35)
[2018-04-24 00:56] LABS: Alanine Aminotransferase 11 Units/L (7-52); Albumin 3.2 g/dL (3.5-5.7); Albumin/Globulin Ratio 0.9 (1.1-2.2); Alkaline Phosphatase 86 Units/L (34-104); Aspartate Amino Transferase 15 Units/L (13-39); BUN/Creatinine Ratio 16 (6-26); Bilirubin,Total 0.2 mg/dL (0.3-1.0); Blood Urea Nitrogen 13 mg/dL (8-23); Calcium 8.5 mg/dL (8.6-10.3); Carbon Dioxide 21 mEq/L (23-29); Chloride 111 mEq/L (98-107); Globulin 3.5 g/dL (2.4-3.5); Glucose 147 mg/dL (70-105); Osmolality,Calculated 291 (280-300); Potassium 3.3 mEq/L (3.5-5.1); Sodium 139 mEq/L (136-145); Total Protein 6.7 g/dL (6.4-8.9); eGFR For Non-African Americans > 60 (> 60)
[2018-04-24] MEDS ORDERED: Albuterol 2.5 MG/3 ML NEBULIZER IH PRN (04:11)
[2018-04-24 05:36] LABS: Troponin I 0.11 ng/mL (< 0.04)
--- NOTE | 2018-04-24 07:31 | Internal Med Progress Note ---
Hospitalist Progress Note - Encounter Date of Encounter: 04/24/18 Time of Encounter: 07:31 - Subjective Interval History: Patient seen and examined resting comfortably in bed. Heart rate 97 on oral metoprolol. Patient is been started on Eliquis per cardiology recommendations. - Exam Vitals: Temp Pulse Resp BP Pulse Ox 98.5 F 88 16 125/73 95 04/24/18 02:55 04/24/18 02:55 04/24/18 02:55 04/24/18 02:55 04/24/18 02:55 Exam: General appearance: Present: cooperative, A&O X 3, no acute distress, awake, pleasant, resting comfortably in bed Head exam: Present: atraumatic, normocephalic Eye exam: Present: pupil dilated, EOMI, conjuntiva pink, sclera anicteric ENT exam: Present: mucous membranes moist Neck exam: Present: supple, trachea midline. Absent: lymphadenopathy Respiratory exam: Present: CTAB. Absent: accessory muscle use, rales, rhonchi, wheezes Cardiovascular exam: Present: RRR, +S1, +S2. Absent: diastolic murmur, gallop, rubs, systolic murmur GI/Abdominal exam: Present: normal bowel sounds, soft, no peritoneal signs. Absent: distended, tenderness Extremities exam: Present: warm, radial pulses palpable and symmetrical. Absent: calf tenderness, cyanotic, pedal edema Neurological exam: Present: CN II-XII intact, oriented X3, no focal deficits. Absent: pronater drift, facial droop, speech deficit Psychiatric exam: Present: normal affect, normal mood Skin exam: Present: dry, warm, no rash - Assessment and Plan (1) Community acquired pneumonia Current Visit: Yes Status: Acute Assessment and Plan: CXR revealed RML opacity 04/22/18 Urine antigen positive for strep pneumonia Legionella Ag negative Blood culture shows no growth to date Monitor, maintain Sp02 >90% Continue ceftriaxone/azithromycin for now. (2) Severe sepsis Current Visit: Yes Status: Resolved Assessment and Plan: As evidenced by high grade leukocytosis, tachycardia and hypotension that was poorly responsive to fluid resuscitation. Secondary to community acquired pneumonia. Will continue empiric abx as indicated. (3) Atrial fibrillation with rapid ventricular response Current Visit: Yes Status: Acute Assessment and Plan: Hx of AFIB RVR, now NSR Electrolyte imbalance Mg and K, supplemented Continue to monitor on telemetry Continue metoprolol for rate control Troponin elevation likely secondary to the extreme rate causing myocardial strain and no further intervention necessary for this at the moment. Cardiology following, appreciate recommendations (4) ROWAN (acute kidney injury) Current Visit: Yes Status: Acute Assessment and Plan: Likely secondary to poor fluid intake and septic state, and decreased perfusion from afib. Discontinue fluids and monitor BMP. (5) Ileostomy, has currently Current Visit: Yes Status: Acute Assessment and Plan: Care and bag changes per nursing. (6) Hypomagnesemia Current Visit: Yes Status: Resolved Assessment and Plan: 2grs MgSO4 administered. Could be an attributable cause to arrhythmia as well. Continue monitoring DVT Prophylaxis: Eliquis - Time Spent with Patient Total time spent is greater than 50% in coordination of care (as documented) at patient's floor/unit and/or counseling patient: Internal Medicine: Result - Labs CBC & Chem 7: 04/24/18 00:26 04/24/18 00:26 Labs: Short CBC 04/24/18 Range/Units 00:26 WBC 13.8 H (4.3-11.1) K/mcL Hgb 10.1 L (11.5-15.4) g/dL Hct 31.1 L (35.3-44.9) % Plt Count 238 (140-400) K/mcL Neutrophils # 11.8 H (1.6-8.9) K/mcL BMP 04/24/18 00:26 Sodium 139 Potassium 3.3 L Chloride 111 H Carbon Dioxide 21 L BUN 13 Creatinine 0.81 Glucose 147 H Calcium 8.5 L Cardiac Enzymes 04/23/18 04/23/18 04/24/18 Range/Units 13:14 18:45 00:26 Troponin I 0.17 H* 0.16 H* 0.15 H* (< 0.04) ng/mL 04/24/18 Range/Units 04:23 Troponin I 0.11 H* (< 0.04) ng/mL Liver Function 04/24/18 Range/Units 00:26 Total Bilirubin 0.2 L (0.3-1.0) mg/dL AST 15 (13-39) Units/L ALT 11 (7-52) Units/L Alkaline Phosphatase 86 (34-104) Units/L Albumin 3.2 L (3.5-5.7) g/dL - ABG Interpretation ABG results: PT/INR, D-dimer PT 15.6 Seconds (9.4-12.1) H 04/22/18 22:34 Consult Discharge Plan - Plan Referrals: José Miguel Coelho DO [Primary Care Provider] - (1) Community acquired pneumonia Qualifiers: Laterality: right Lung location: lower lobe of lung Qualified Code(s): J18.1 - Lobar pneumonia, unspecified organism
[2018-04-24 07:53] LABS: Magnesium 1.8 mg/dL (1.6-2.6)
[2018-04-24] MEDS ORDERED: Metoprolol XL (24 HR) Succ 25 MG TAB.ER.24H PO SCH (09:00)
[2018-04-24] MEDS ORDERED: Aspirin 81 MG TAB.CHEW PO SCH (09:00)
[2018-04-24] MEDS ORDERED: Budesonide/Formoterol 80/4.5 MDI IH SCH (10:00)
--- NOTE | 2018-04-24 11:01 | Cardiology Progress Note ---
Date of Encounter: 04/24/18 Time of Encounter: 11:00 Assessment and Plan (1) PAF (paroxysmal atrial fibrillation) Current Visit: Yes Status: Acute Reported occurrence of PAF at [place] 09/2016 in setting of PNA and sepsis. Recurrence on this admission--again in setting of sepsis and PNA--A-Fib RVR HR 160s. Was started on Cardizem gtt and has converted back to SR. Electrolyte imbalances. K was 3.3 and Mag 1.4 on presentation--both replaced. TSH WNL. Not on any AV marlene blockers at home. BP borderline. Will start low dose BB Toprol XL 12.5mg daily. [id number] 2 (Age, Female) High CVA risk. PAF occurs with stressors--PNA/sepsis. However, with known recurrence and increased CVA risk, recommend detention AC. Discussed Coumadin vs NOACs, prefers NOAC, specifically Eliquis. Patient will go with Eliquis - dosing is 5mg po BID. If any significant hemoptysis, hold eliquis until abx course finished and patient no longer coughing. TTE shows no significant valvular disease and nml EF. Does have small effusion without evidence of tamponade - repeat as outpatient this week (ecw order). Acceptable to DC from cardio perspective. (2) Community acquired pneumonia Current Visit: Yes Status: Acute per primary service Qualifiers: Laterality: right Lung location: lower lobe of lung Qualified Code(s): J18.1 - Lobar pneumonia, unspecified organism Discussion w patient/family: The assessment and plan as outlined above was discussed with the patient and/or family members who expressed understanding and agreement. All questions were answered. Thank you for involving us in the care of your patient. Please call with any questions. Subjective Interval history: Patient feels well overnight without worsening dyspnea or palpitations. Very minimal blood tinged sputum overnight upon coughing x 4. She notes dry mucus membranes from being in the hospital. Objective Vital Signs, Last 4 Hours Temp Pulse Resp BP Pulse Ox 04/24/18 08:13 98.8 F 97 16 130/54 92 General: Conversant, No Apparent Distress HEENT: Atraumatic, Normocephaly Neck: No JVD Cardiac: Reg Rate and Rhythm Lungs: Other (ll wheezes) Neuro: Alert and responsive Abdomen: Soft Skin: No rashes noted on visualized skin Musculoskeletal: No Chest Wall Tenderness Extremities: No Edema Results 04/24/18 00:26 04/24/18 00:26 Lab Results 04/23/18 04/23/18 04/24/18 13:14 18:45 00:26 WBC 13.8 H Hgb 10.1 L Hct 31.1 L Plt Count 238 Sodium Potassium Chloride Carbon Dioxide BUN Creatinine Glucose Calcium Magnesium Total Bilirubin AST ALT Alkaline Phosphatase Troponin I 0.17 H* 0.16 H* 04/24/18 04/24/18 04/24/18 00:26 00:26 04:23 WBC Hgb Hct Plt Count Sodium 139 Potassium 3.3 L Chloride 111 H Carbon Dioxide 21 L BUN 13 Creatinine 0.81 Glucose 147 H Calcium 8.5 L Magnesium 1.8 Total Bilirubin 0.2 L AST 15 ALT 11 Alkaline Phosphatase 86 Troponin I 0.15 H* 0.11 H* Consult Discharge Plan - Plan Referrals: José Miguel Coelho DO [Primary Care Provider] -
--- NOTE | 2018-04-24 12:12 | Discharge Summary ---
<Adam Hassan - Last Filed: 04/24/18 14:49> - NOTES TO OUTPATIENT PROVIDER Notes to Outpatient Provider: Patient started on Eliquis for atrial fibrillation. If any significant hemoptysis, hold eliquis until abx course finished and patient no longer coughing. Continue 3 more days of azithromycin therapy for community acquired pneumonia. Orders not resulted at time of discharge: Pending orders 04/23/18 01:47 Culture,Blood [BC] Stat 04/23/18 14:20 EKG [ECG 12 lead ECG] [ECG] Stat 04/24/18 12:11 Troponin I Q8H 04/25/18 04:00 Magnesium AM 0400 04/26/18 04:00 Magnesium AM 0400 04/27/18 04:00 Magnesium AM 0400 04/28/18 04:00 Magnesium AM 0400 Date of Encounter: 04/24/18 Time of Encounter: 09:50 - Discharge Diagnosis (1) Community acquired pneumonia Priority: Primary Status: Acute Assessment and Plan: CXR revealed RML opacity 04/22/18 Urine antigen positive for strep pneumonia Legionella Ag negative Blood culture shows no growth to date Monitor, maintain Sp02 >90% Day 2 of ceftriaxone/azithromycin. Rx given for 3 additional days of azithromycin Stable for discharge and outpatient follow-up Qualifiers: Laterality: right Lung location: lower lobe of lung Qualified Code(s): J18.1 - Lobar pneumonia, unspecified organism (2) Atrial fibrillation with rapid ventricular response Priority: Secondary Status: Acute Assessment and Plan: Hx of AFIB RVR, now NSR Electrolyte imbalance Mg and K, supplemented Continue to monitor on telemetry Continue metoprolol for rate control Troponin elevation likely secondary to the extreme rate causing myocardial strain and no further intervention necessary for this at the moment. Cardiology following, appreciate recommendations (3) ROWAN (acute kidney injury) Priority: Secondary Status: Acute Assessment and Plan: Likely secondary to poor fluid intake and septic state, and decreased perfusion from afib. Discontinue IV fluids and monitor BMP. (4) Ileostomy, has currently Priority: Secondary Status: Acute Assessment and Plan: Care and bag changes per nursing. (5) Hypomagnesemia Priority: Secondary Status: Resolved Assessment and Plan: 2grs MgSO4 administered. Could be an attributable cause to arrhythmia as well. Continue monitoring (6) Severe sepsis Priority: Secondary Status: Resolved Assessment and Plan: As evidenced by high grade leukocytosis, tachycardia and hypotension that was poorly responsive to fluid resuscitation. Secondary to community acquired pneumonia. Will continue empiric abx as indicated. Hospital course: Ms. Melchor is a 73 year old female with a PMH of ulcerative colitis s/p total proctocolectomy and ileostomy, episode of PAF 09/2016 at [facility] in setting of sepsis and PNA who presented to ED with her , Dr. Melchor, with complaints of 2 days of generalized malaise, palpitations, fever of 101.5F at home and chills. On arrival, she was found to be in A-Fib RVR and hypotensive. She was diagnosed with sepsis and PNA again during current hospitalization. She was started on cardizem gtt-- after about 4 hours she converted back to sinus rhythm. TTE showed no significant valvular disease and nml EF. Troponin max 0.17, patient was evaluated by cardiology. Troponin elevation likely secondary to the extreme rate causing myocardial strain and no further intervention was necessary per cardiology. Patient completed 2 days of IV Rocephin and azithromycin. Urinary antigen was positive for strep pneumo. She was discharged home with prescription for metoprolol 12.5 mg by mouth and 3 additional days of azithromycin. Patient was started on Eliquis and instructed to follow up with PCP upon discharge. Discharge discussed with: patient, nurse - Time Spent with Patient Total time spent providing and/or coordinating discharge services: - Discharge Medications Prescriptions: Apixaban [Eliquis] 5 mg PO BID #60 tablet Azithromycin 250 mg PO DAILY #4 tablet Metoprolol XL (24 HR) Succ [Toprol Xl] 12.5 mg PO DAILY #30 tab.er.24h Home Medications: Acetaminophen [Tylenol] 1,000 mg PO Q6HR PRN 10/24/16 [History] Albuterol Sulfate [Albuterol Inhaler] 2 puff IH Q6HR PRN 10/24/16 [History] Atorvastatin Calcium [Lipitor] 20 mg PO HS 10/24/16 [History] Fluticasone/Salmeterol [Advair 250-50 Diskus] 1 puff IH BID 10/24/16 [History] Naproxen Sodium [Aleve] 220 mg PO Q12H PRN 10/24/16 [History] Paroxetine [Paxil] 30 mg PO DAILY 10/24/16 [History] Trazodone HCl 150 mg PO HS 10/24/16 [History] Estrogens, Conjugated [Premarin Cream] 1 appl VG 2XW 04/23/18 [History] Omeprazole [PriLOSEC] 20 mg PO DAILY 04/23/18 [History] Apixaban [Eliquis] 5 mg PO BID #60 tablet 04/24/18 [Rx] Aspirin 81 mg PO DAILY tab.chew 04/24/18 [Rx] Azithromycin 250 mg PO DAILY #4 tablet 04/24/18 [Rx] Metoprolol XL (24 HR) Succ [Toprol Xl] 12.5 mg PO DAILY #30 tab.er.24h 04/24/18 [Rx] Allergies/Adverse Reactions: Allergy/AdvReac Type Severity Reaction Status Date / Time No Known Allergies Allergy Verified 05/01/15 19:31 Date of admission: 04/23/18 03:03 Primary care physician: José Miguel Coelho DO Consults: 04/23/18 02:07 Consult to Cardiology [CONS] Stat Comment: Consulting Provider: Cardiology [place] Reason for Consult: A. Fib RVR...converted to NSR on cardizem drip. Boarderline hypotensive. RML PNA. Time Notified: 02:08 Call Completed: Yes Discharging clinician: El Sorto Anticipated date of discharge: 04/24/18 - Constitutional Vitals: Temp Pulse Resp BP Pulse Ox 98.8 F 97 16 130/54 92 04/24/18 08:13 04/24/18 08:13 04/24/18 08:13 04/24/18 08:13 04/24/18 08:13 General appearance: Present: cooperative, pleasant, no acute distress, answers questions appropriately Exam: awake - Head Head exam: Present: atraumatic, normocephalic - Eye Eye exam: Present: EOMI, conjuntiva pink, sclera anicteric - ENT ENT exam: Present: mucous membranes moist, normal oropharynx - Neck Neck exam general surgery: Present: supple, trachea midline. Absent: lymphadenopathy - Respiratory Respiratory exam: Present: CTAB. Absent: accessory muscle use, rales, rhonchi, wheezes - Cardiovascular Cardiovascular exam: Present: RRR, +S1, +S2. Absent: diastolic murmur, gallop, rubs, systolic murmur - GI/Abdominal GI/Abdominal exam: Present: normal bowel sounds, soft, no peritoneal signs. Absent: distended, tenderness - Extremities Exam Extremities exam: Present: warm, radial pulses palpable and symmetrical. Absent: calf tenderness, cyanotic, pedal edema - Neurological Exam Neurological exam: Present: CN II-XII intact, oriented X3, no focal deficits. Absent: facial droop, speech deficit - Psychiatric Psychiatric exam: Present: normal affect, normal mood - Skin Skin exam: Present: dry, intact, warm - Patient Status Disposition: Home, Self-Care Condition: Fair Functional capacity at discharge: independent ambulation Overall status at discharge: patient is progressing back to baseline - Discharge Instructions Instructions: Atrial Fibrillation (DC), Community-acquired Pneumonia (DC) Follow Up With: José Miguel Coelho DO [Primary Care Provider] - (follow up in 7 to 10 days ) - Diet and Activity Activity: increase activity as tolerated Diet: advance to your usual diet (cardiac) <El Sorto - Last Filed: 04/24/18 19:27> Orders not resulted at time of discharge: Pending orders 04/23/18 01:47 Culture,Blood [BC] Stat 04/23/18 14:20 EKG [ECG 12 lead ECG] [ECG] Stat - Discharge Diagnosis (1) Severe sepsis due to Streptococcus pneumoniae with acute organ dysfunction Priority: Primary Status: Resolved (2) Pneumonia Priority: Secondary Status: Acute Qualifiers: Pneumonia type: due to Pneumococcus Laterality: bilateral Lung location: lower lobe of lung Qualified Code(s): J13 - Pneumonia due to Streptococcus pneumoniae (3) Community acquired pneumonia Status: Acute Qualifiers: Laterality: right Lung location: lower lobe of lung Qualified Code(s): J18.1 - Lobar pneumonia, unspecified organism (4) ROWAN (acute kidney injury) Status: Resolved (5) Ileostomy, has currently Status: Acute (6) Atrial fibrillation with rapid ventricular response Status: Acute (7) Hypomagnesemia Status: Resolved (8) Severe sepsis Status: Resolved (9) PAF (paroxysmal atrial fibrillation) Priority: Secondary Status: Chronic Hospital course: Ms. Melchor is a 73 year old female - Time Spent with Patient Total time spent providing and/or coordinating discharge services: 37min Date of admission: 04/23/18 03:03 Primary care physician: José Miguel Coelho DO Consults: 04/23/18 02:07 Consult to Cardiology [CONS] Stat Comment: Consulting Provider: Cardiology Sara Reason for Consult: A. Fib RVR...converted to NSR on cardizem drip. Boarderline hypotensive. RML PNA. Time Notified: 02:08 Call Completed: Yes - Constitutional Vitals: Temp Pulse Resp BP Pulse Ox 99.4 F 92 17 116/58 91 04/24/18 12:24 04/24/18 12:24 04/24/18 12:24 04/24/18 12:24 04/24/18 12:24 - Attending Attestation I examined this patient and my medical decision-making was reviewed with the Resident Physician on 04/24/18. I agree with the documented findings, disposition and treatment plan as described except to the extent set forth below. Ms Melchor has been admitted for new onset a fib and acute pneumococcal pneumonia. She is now rate controlled and on Eliquis. She is afebrile and ready for discharge home. Exam alert Comfortable Mucus membranes dry Heart irreg and not tachy No wheeze Abd soft Plan D/C home today.
[2018-04-24 12:25] VITALS: BP 116/58
[2018-04-24] MEDS ORDERED: Azithromycin 500 MG in D5% in Water 250 ML IVPB SCH ×2 (12:40→21:00)
[2018-04-24] MEDS ORDERED: cefTRIAXone 1,000 MG in Water for inj. (sterile) 20 ML 10 ML IVPB ONE ×2 (14:00→22:00)
[2018-04-24] MEDS ORDERED: traZODone 50 MG TABLET PO SCH (21:00)
[2018-04-24] MEDS ORDERED: Apixaban 5 MG TABLET PO SCH (21:00)
[2018-04-24] MEDS ORDERED: cefTRIAXone 1,000 MG in Water for inj. (sterile) 20 ML 10 ML IVPB SCH (22:00)
--- NOTE | 2018-04-24 23:25 | Electrocardiograph Report ---
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
--- NOTE | 2018-04-27 13:53 | Electrocardiograph Report ---
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
--- NOTE | 2018-04-30 09:46 | Electrocardiograph Report ---
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
== END 2018-04-24 18:00 | disposition home or self-care (01) | DRG 871 ==
LOC: ICNU 22:17 → EMEROOARM 22:17 → SUATTDRO 04-23 03:03 → ICNU 04-23 04:06 → 3ANU 04-23 12:42
PROVIDERS: ADMIT Internal Medicine; ATTEND Internal Medicine

== ENCOUNTER 2021-11-26 16:06 | Observation (INO) ==
[2021-11-26 17:15] LABS: Basophils % 0.6 %; Eosinophils # 0.2 K/mcL (0.0-0.6); Hematocrit 35.7 % (35.3-44.9); Hemoglobin 11.6 g/dL (11.5-15.4); Immature Granulocytes % 0.2 % (0-4); Lymphocytes # 0.7 K/mcL (0.6-4.6); Lymphocytes % 13.4 %; Mean Corpuscular HGB Conc 32.5 g/dL (31.6-35.5); Mean Corpuscular Hemoglobin 31.4 pg (28.0-33.3); Mean Corpuscular Volume 96.7 fL (83.0-100.0); Mean Platelet Volume 9.7 fL (9.4-12.4); Monocytes # 0.5 K/mcL (0.0-1.3); Monocytes % 9.4 %; Neutrophils # 3.7 K/mcL (1.6-8.9); Platelet Count 257 K/mcL (140-400); Red Blood Count 3.69 M/mcL (3.82-4.97); Red Cell Distribution Width 13.4 % (11.5-14.5); Segmented Neutrophils % 73.4 %; White Blood Count 5.1 K/mcL (4.3-11.1)
[2021-11-26 17:27] LABS: INR 1.3; Prothrombin Time 14.7 Seconds (9.4-12.1)
[2021-11-26 17:30] LABS: Activated Partial Thrombo Time 30.6 Seconds (26.0-36.0)
[2021-11-26 17:33] LABS: BUN/Creatinine Ratio 29 (6-26); Blood Urea Nitrogen 31 mg/dL (8-23); Calcium 9.7 mg/dL (8.6-10.3); Carbon Dioxide 22 mEq/L (23-29); Chloride 108 mEq/L (98-107); Glucose 90 mg/dL (70-105); Osmolality,Calculated 290 (280-300); Potassium 4.7 mEq/L (3.5-5.1); Sodium 137 mEq/L (136-145); eGFR For African Americans 60 (> 60); eGFR For Non-African Americans 49 (> 60)
[2021-11-26 17:34] LABS: Troponin I < 0.03 ng/mL (< 0.04)
[2021-11-26] MEDS ORDERED: Perflutren Lipid Microsphere 1.3 ML in 0.9 % Sodium Chloride 8.7 ML IVP PRN (17:59)
[2021-11-26] MEDS ORDERED: Nitroglycerin 0.4 MG TAB.SUBL SL PRN (17:59)
[2021-11-26] MEDS ORDERED: Naloxone 0.4 MG/ML INJ IVP PRN ×2 (17:59→18:01)
[2021-11-26] MEDS ORDERED: Ondansetron 4 MG/2 ML VIAL IVP PRN (18:01)
[2021-11-26] MEDS ORDERED: NON-FORMULARY MEDICATION 1 EACH EACH (Alendronate Sodium 70 MG Tablet) PO SCH (23:45)
[2021-11-26] MEDS ORDERED: Estrogens, Conjugated CREAM 30 GM TUBE VG PRN (23:59)
[2021-11-27] MEDS: Apixaban 5 MG TABLET PO SCH ×2 (00:23→08:22)
[2021-11-27] MEDS ORDERED: traZODone 50 MG TABLET PO SCH (00:30)
[2021-11-27 02:28] LABS: Basophils % 0.7 %; Eosinophils # 0.2 K/mcL (0.0-0.6); Eosinophils % 3.8 %; Hematocrit 33.9 % (35.3-44.9); Immature Granulocytes % 0.2 % (0-4); Lymphocytes # 0.7 K/mcL (0.6-4.6); Lymphocytes % 16.4 %; Mean Corpuscular HGB Conc 32.4 g/dL (31.6-35.5); Mean Corpuscular Hemoglobin 31.3 pg (28.0-33.3); Mean Corpuscular Volume 96.6 fL (83.0-100.0); Monocytes # 0.6 K/mcL (0.0-1.3); Monocytes % 12.4 %; Platelet Count 240 K/mcL (140-400); Red Blood Count 3.51 M/mcL (3.82-4.97); Red Cell Distribution Width 13.4 % (11.5-14.5); Segmented Neutrophils % 66.5 %; White Blood Count 4.5 K/mcL (4.3-11.1)
[2021-11-27 02:35] LABS: Alanine Aminotransferase 10 Units/L (7-52); Albumin 3.6 g/dL (3.5-5.7); Albumin/Globulin Ratio 1.1 (1.1-2.2); Alkaline Phosphatase 58 Units/L (34-104); Aspartate Amino Transferase 15 Units/L (13-39); BUN/Creatinine Ratio 31 (6-26); Bilirubin,Total 0.5 mg/dL (0.3-1.0); Blood Urea Nitrogen 27 mg/dL (8-23); Calcium 9.2 mg/dL (8.6-10.3); Carbon Dioxide 22 mEq/L (23-29); Chloride 108 mEq/L (98-107); Globulin 3.3 g/dL (2.4-3.5); Glucose 91 mg/dL (70-105); Magnesium 2.2 mg/dL (1.6-2.6); Osmolality,Calculated 291 (280-300); Sodium 138 mEq/L (136-145); Total Protein 6.9 g/dL (6.4-8.9); eGFR For African Americans > 60 (> 60); eGFR For Non-African Americans > 60 (> 60)
[2021-11-27] MEDS ORDERED: Acetaminophen 325 MG TABLET PO ONE ×2 (04:05→11:07)
[2021-11-27] MEDS ORDERED: Regadenoson 0.4 MG/5 ML SYRINGE IVP ONE (08:17)
[2021-11-27] MEDS ORDERED: Aspirin 81 MG TAB.CHEW PO SCH (09:00)
[2021-11-27] MEDS ORDERED: Cholecalciferol (D-3) 1,000 UNIT (25MCG) TABLET PO SCH (09:00)
[2021-11-27 11:10] VITALS: BP 155/80; PULSE 71; TEMP 98.1; O2SAT 93
[2021-11-27] MEDS ORDERED: Gabapentin 300 MG CAPSULE PO SCH (21:00)
[2021-11-27] MEDS ORDERED: PARoxetine 20 MG TABLET PO SCH (21:00)
[2021-12-03] MEDS ORDERED: [UNRECOGNIZED DRUG - OTHER] SUBQ SCH (09:00)
[2021-12-03] MEDS ORDERED: IMMUNE GLOBULIN SUBQ SCH (09:00)
== END 2021-11-27 14:14 | disposition home or self-care (01) ==
LOC: EMEROOARM 16:06 → 3BNU 16:06 → SUATTDRO 18:13 → 3BNU 19:25
PROVIDERS: ADMIT Internal Medicine; ATTEND Internal Medicine